=== PATIENT | male | born 1960 | race Caucasian/White ===

== ENCOUNTER 2017-04-14 14:35 | Inpatient (IN) ==
[~2017-04-14 14:35] MED LIST: NOZIN NASAL SWAB NAS ONE
--- OUTSIDE RECORDS SUMMARY | 2017-04-14 16:01 | External Medical Summary ---
:1960 Author Name GENERATED, SYSTEM Care Team Providers Name Role Phone MD BAR, KIRIT Primary Care Provider [phone] Reason For Visit Chief Complaint PRESSURE ULCER ANKLE Social History Functional Status Vital Signs Results Problems Encounter Diagnosis No relevant problems exist. Encounters Encounter Diagnosis No relevant problems exist. Plan of Care Procedures Completed , on 05/01/2013 12:00 AM Immunizations No immunizations administered or ordered. Hospital Course Hospital Discharge Instructions Allergies, Adverse Reactions, Alerts Latex Allergy has not been assessed.IV Contrast Allergy has not been assessed. Medication Medication reconciliation has not been performed.
--- OUTSIDE RECORDS SUMMARY | 2017-04-14 16:01 | External Medical Summary ---
:1960 Author Name GENERATED, SYSTEM Care Team Providers Name Role Phone MD BAR, KIRIT Primary Care Provider [phone] Reason For Visit Chief Complaint PRESSURE ULCER ANKLE Social History Functional Status Vital Signs Results Microbiology from 02/18/2016 1:54 PMCULTURE ANAEROBIC Specimen Number: [id number] Sample Collection Date/Time: 02/18/2016 1:54 PM Specimen Source: Arm Right Forearm CULTURE WOUND: Staphylococcus aureus Heavy growth Methicillin Resistant Staphylococcus aureus isolated. Use Infection Control Precautions. *GRAM STAIN: Many RBC's Few WBC's Few Gram positive cocci in clusters CULTURE ANAEROBIC: No anaerobes isolated *ISOLATE1: Staphylococcus aureus 1 Comment Result Value Staphylococcus aureus Result Status Final Result Ciprofloxacin >=8 R Clindamycin =0.25 S Daptomycin =1 S Doxycycline <=0.5 S Gentamicin <=0.5 S Levofloxacin =4 R Linezolid =2 S Oxacillin >=4 R Rifampin <=0.5 S Tetracycline <=1 S Tigecycline <=0.12 S Trimethoprim/Sulfa <=10 S Vancomycin =1 S CULTURE WOUND Specimen Number: [id number] Sample Collection Date/Time: 02/18/2016 1:54 PM Specimen Source: Arm Right Forearm CULTURE ANAEROBIC: No anaerobes isolated *GRAM STAIN: Many RBC's Few WBC's Few Gram positive cocci in clusters CULTURE WOUND: Staphylococcus aureus Heavy growth Methicillin Resistant Staphylococcus aureus isolated. Use Infection Control Precautions. *ISOLATE1: Staphylococcus aureus 1 Comment Result Value Staphylococcus aureus Result Status Final Result Ciprofloxacin >=8 R Clindamycin =0.25 S Daptomycin =1 S Doxycycline <=0.5 S Gentamicin <=0.5 S Levofloxacin =4 R Linezolid =2 S Oxacillin >=4 R Rifampin <=0.5 S Tetracycline <=1 S Tigecycline <=0.12 S Trimethoprim/Sulfa <=10 S Vancomycin =1 S *GRAM STAIN Specimen Number: [id number] Sample Collection Date/Time: 02/18/2016 1:54 PM Specimen Source: Arm Right Forearm CULTURE ANAEROBIC: No anaerobes isolated CULTURE WOUND: Staphylococcus aureus Heavy growth Methicillin Resistant Staphylococcus aureus isolated. Use Infection Control Precautions. *GRAM STAIN: Many RBC's Few WBC's Few Gram positive cocci in clusters *ISOLATE1: Staphylococcus aureus 1 Comment Result Value Staphylococcus aureus Result Status Final Result Ciprofloxacin >=8 R Clindamycin =0.25 S Daptomycin =1 S Doxycycline <=0.5 S Gentamicin <=0.5 S Levofloxacin =4 R Linezolid =2 S Oxacillin >=4 R Rifampin <=0.5 S Tetracycline <=1 S Tigecycline <=0.12 S Trimethoprim/Sulfa <=10 S Vancomycin =1 S Problems Encounter Diagnosis No relevant problems exist. [...]
--- OUTSIDE RECORDS SUMMARY | 2017-04-14 16:01 | External Medical Summary ---
:1960 Author Name GENERATED, SYSTEM Care Team Providers Name Role Phone MD ABR, KIRIT Primary Care Provider [phone] Reason For Visit Chief Complaint PRESSURE ULCER ANKLE Social History Functional Status Vital Signs Results Problems Encounter Diagnosis No relevant problems exist. Encounters Encounter Diagnosis No relevant problems exist. Plan of Care Procedures Completed Procedure Code: [id number] Procedure Name: not valued, on 02/18/2016 12: 00 AMCompleted , on 05/01/2013 12:00 AM Immunizations No immunizations administered or ordered. Hospital Course Hospital Discharge Instructions Allergies, Adverse Reactions, Alerts Latex Allergy has not been assessed.IV Contrast Allergy has not been assessed. Medication Medication reconciliation has not been performed.
--- OUTSIDE RECORDS SUMMARY | 2017-04-14 16:01 | External Medical Summary ---
:1960 Author Name GENERATED, SYSTEM Care Team Providers Name Role Phone MD BAR, KIRIT Primary Care Provider [phone] Reason For Visit Chief Complaint PRESSURE ULCER [...]
--- OUTSIDE RECORDS SUMMARY | 2017-04-14 16:01 | External Medical Summary ---
:1960 Author Name GENERATED, SYSTEM Care Team Providers Name Role Phone MD BAR, KIRIT Primary Care Provider [phone] Reason For Visit Chief Complaint PRESSURE ULCER ANKLE Social History Functional Status Vital Signs Results Problems Encounter Diagnosis No relevant problems exist. Encounters Encounter Diagnosis No relevant problems exist. Plan of Care Procedures Completed Procedure Code: [id number] Procedure Name: not valued, on 02/18/2016 12: 00 AMCompleted , on 05/01/2013 12:00 AM Immunizations No immunizations administered or ordered. Hospital Course Hospital Discharge Instructions Allergies, Adverse Reactions, Alerts Latex Allergy has not been assessed.IV Contrast Allergy has not been assessed. Medication Medication reconciliation has not been performed.
--- OUTSIDE RECORDS SUMMARY | 2017-04-14 16:02 | External Medical Summary | Continuity of Care Document ---
:1960 Author Organization [facility] Care Team Providers Name Role Phone FRANCESCO HARDING MD Unavailable Unavailable Insurance Providers Payer Name Policy Number Subscriber Name Relationship Medicare A And B [id number] Kod[employer] Stuart 18 Self / Same As Patient [facility] [id number] [employer] Stuart 18 Self / Same As Patient Advance Directives Directive Response Recorded Date/Time Advanced Directives Yes 09/14/15 2:21pm Type Durable Power of Punch Machine Operator 09/14/15 2:21pm Chief Complaint and Reason for Visit Chief Complaint Injury Reason for Visit [id number] Problems Active Problems Medical Problem Onset Date Status Abrasion of ankle, right Unknown Acute Cellulitis 09/23/2012 Acute Cellulitis and abscess of ankle 01/27/2013 Acute Cellulitis and abscess of leg 12/15/2011 Chronic Cellulitis of right foot Unknown Acute Falls 05/23/2013 Acute Injury of toe 01/10/2012 Acute Medication monitoring encounter Unknown Acute Pain in lower limb 01/29/2013 Acute Ulcer of right foot Unknown Acute Medications Current Home Medications Medication Dose Units Route Directions Days/Qty Instructions Start Date Metformin Hcl 1,000 Mg ORAL Twice A Day 12/21/11 1,000 Mg Furosemide 40 Mg 40 Mg ORAL Daily 10/03/12 Nebivolol Hcl 5 5 Mg ORAL Daily 01/29/13 Mg Citalopram 40 Mg ORAL Daily 01/29/13 Hydrobromide (Celexa) 20 Mg Potassium 10 Meq ORAL Twice A Day 01/29/13 Chloride 10 Meq Acetaminophen 650 Mg ORAL Every 4 Hours as 01/29/13 (Tylenol) 325 Mg needed for Pain Divalproex Sodium 500 Mg ORAL Three Times A 06/10/15 (Divalproex Day Sodium Er) 500 Mg Lisinopril/Hydroc 1 Tab ORAL Daily 06/10/15 hlorothiazide 1 Each Aspirin 81 Mg 81 Mg ORAL Daily 06/10/15 Lovastatin 40 Mg 40 Mg ORAL Bedtime 06/10/15 Multivitamin 1 1 Tab ORAL Daily@1200 06/10/15 Each Ascorbic Acid 500 500 Mg ORAL Twice A Day For wound 06/10/15 Mg healing, stop when wound is kayy. Famotidine 20 Mg 20 Mg ORAL Bedtime 06/10/15 Arginine/Glutamin 1 Pkt ORAL Twice A Day 06/10/15 e/Calcium Hmb 1 Each Fluticasone 2 [place] Nasal Daily as needed 06/14/15 Propionate 16 Gm for Seasonal Allergies Doxycycline 100 Mg ORAL Twice A Day 06/15/15 Hyclate 100 Mg Hydrocodone/Aceta 1 Tab ORAL Every 8 Hrs On 06/15/15 minophen 1 Each Schedule Polyethylene 17 Gm ORAL Daily 06/15/15 Glycol 3350 17 Gm Docusate Sodium 100 Mg ORAL Twice A Day as 06/15/15 100 Mg needed for Constipation Magnesium 2,400 Mg ORAL Twice A Day as 06/15/15 Hydroxide 2,400 needed for Mg/10 Ml Constipation Past Home Medications Medication Directions Ordered Status Divalproex Sodium 500 Mg Tab, 500 Three Times A Day 11/01/11 Discontinued Mg Oral Omeprazole 5 Gm Powder, 5 Gm 11/01/11 Discontinued Miscell Omeprazole 20 Mg Capsule.dr, 20 Mg Daily 11/01/11 Discontinued Oral Furosemide 20 Mg Tablet, 20 Mg Daily 11/01/11 Discontinued Oral Multivitamin 1 Each Tablet, 1 Each Daily 11/01/11 Discontinued Oral Acetaminophen 500 Mg Tablet, 500 As Needed 11/01/11 Discontinued Mg Oral Cholestyramine/Aspartame 4 Gm Twice A Day 12/21/11 Discontinued Packet, 4 Gm Oral Fluticasone Propionate 16 Gm Daily 12/21/11 Discontinued [place], 2 Sprays Nasal Glyburide 5 Mg Tablet, 5 Mg Oral Twice A Day 12/21/11 Discontinued Lisinopril 20 Mg Tablet, 20 Mg Daily 12/21/11 Discontinued Oral Minocycline Hcl 100 Mg Capsule, Twice A Day 12/21/11 Discontinued 100 Mg Oral Fluticasone Propionate 16 Gm Daily 12/21/11 Discontinued [place], 1-2 Sprays Nasal Ertapenem Sodium 1 Gm Vial.port, Daily 01/10/12 Discontinued 1000 Mg Intamuscular Linezolid 600 Mg/300 Ml Soln, 600 Twice A Day 10/03/12 Discontinued Mg Intravenous Insulin Lispro (Insulin Humalog) Three Times Daily With Meals 10/03/12 Discontinued 100 Unit/1 Ml Vial, 5 Unit Sub-Q Insulin Glargine,Hum.rec.anlog 100 Bedtime 10/03/12 Discontinued Unit/1 Ml Vial, 10 Unit Sub-Q Azithromycin 250 Mg Tablet, 250 Mg Daily 01/27/13 Discontinued Oral Eucalyptus Oil/Menthol/Camphor 85 Bedtime 01/29/13 Discontinued Gm Cream..g., 85 Gm Topical Nystatin 1 Each Powder.ea., Each As Needed 01/29/13 Discontinued Miscell Calcium Carbonate 500 Mg Tablet, Twice A Day 01/29/13 Discontinued 500 Mg Oral Zolpidem Tartrate 5 Mg Tablet, 5 Bedtime 01/29/13 Discontinued Mg Oral Hydrocodone Bit/Acetaminophen 1 Bedtime 01/29/13 Discontinued Tab Tab, 1 Tab Oral Hydrocodone Bit/Acetaminophen 1 Three Times A Day 01/29/13 Discontinued Tab Tab, 1 Tab Oral Social History Social History Problem Response Recorded Date/Time Onset Date Status Exposure to occupational hazards No 06/10/2015 2:15pm Query Response Start Date Stop Date Smoking Status Never smoker Hospital Discharge Instructions No hospital discharge instructions. Plan of Care Discharge Date 09/14/15 3:15pm Disposition 01 HOME OR SELF-CARE Condition at Discharge Stable Instructions/Education Provided Abrasion (ED) Prescriptions See Medication Section Referrals FRANCESCO HARDING MD - Additional Instructions/Education You have suffered a small abrasion of your right ankle, possible where you already had a pressure ulcer over the lateral malleolus. It did have some bleeding initially, but it stopped and does not need sutures. You may have the nurses resume daily dressings and Unna boot application as they have been doing. Follow up with your doctor as needed or previously scheduled. Notify your doctor if you have any further bleeding that verduzco snot respond to direct pressure. Some of your test results may not be complete prior to your leaving the Emergency Department. The Emergency Department is not authorized to give test results over the phone. Please contact the doctor's office listed in this packet of information for your final results. Follow up with your primary care physician or return to the Emergency Department for worsening or worrisome symptoms. * Emergency Department phone number: [phone], x [phone]* MEDICAL RECORD If you need copies of your X-rays, call [phone]. If you need copies of your medical record, including lab results, a signed authorization for release of records will be required. A telephone call for release of Health Information is not allowed. BILLING Billing can sometimes be confusing and frustrating. To help avoid confusion in the future, please take a moment to acquaint yourself with the billing parties for services. SERVICE BILLING [employer]UTION [employer] Emergency Room Services [facility] Physician Services [facility] X-rays [facility] Patients will receive bills for services from the appropriate provider. If you have any questions about your [facility] bill, our staff will be happy to assist you. Please call [phone], and ask for the billing department. THANK YOU for choosing [facility] as your emergency care provider! Care Plan and Goals ~~Discharge Care Plan~~ Problem: Wound care and treatment Goal: Wound will be clean and dry, without redness, swelling or drainage. Instructions: Take medication(s) as prescribed. Keep wound clean and dry. Apply antibiotic ointment as directed. Follow up with primary care physician as directed. Keep wound covered if working in an unclean environment. Functional Status No functional status results. Allergies, Adverse Reactions, Alerts Allergen Type Severity Reaction Status Last Updated Penicillin Allergy Unknown Active 11/02/11 Clindamycin Allergy Intermediate Hives Active 06/11/15 Ciprofloxacin Allergy Unknown Active 11/02/11 cefazolin Allergy Unknown Active 11/02/11 vancomycin Allergy Severe Confusion Active 06/11/15 levofloxacin Allergy Unknown Active 11/02/11 Immunizations Name Given Type Status Date Pneumonia Vaccine Received if Current 06/12/15 Historical Historical Date Influenza Vaccine Received if Current 03/07/16 Historical Historical Vital Signs Acute Vital Signs Vital Response Date/Time Temperature (Fahrenheit) 98.1 09/14/2015 4:32pm Pulse 68 bpm 09/14/2015 4:32pm Respirations 16 09/14/2015 4:32pm Height 5 ft 4 in Weight 264 lb Body Mass Index 45.0 kg/m^2 Results No known relevant diagnostic tests, laboratory data and/or discharge summary. Procedures No known history of procedures. Encounters Encounter Location Arrival/Admit Date Discharge/Depart Date Attending Provider Departed Renate 09/14/15 2:21pm 09/14/15 3:15pm [facility] MICHELLE Colby DO Recent Diagnosis
--- OUTSIDE RECORDS SUMMARY | 2017-04-14 16:02 | External Medical Summary ---
:1960 Author Name GENERATED, SYSTEM Care Team Providers Name Role Phone MD BAR, KIRIT Primary Care Provider [phone] Reason For Visit Chief Complaint PRESSURE ULCER [...]
--- OUTSIDE RECORDS SUMMARY | 2017-04-14 16:04 | External Medical Summary ---
:1960 Author Name GENERATED, SYSTEM Care Team Providers Name Role Phone MD BAR, KIRIT Primary Care Provider [phone] Reason For Visit Chief Complaint PRESSURE ULCER [...]
--- OUTSIDE RECORDS SUMMARY | 2017-04-14 16:04 | External Medical Summary ---
:1960 Author Name GENERATED, SYSTEM Care Team Providers Name Role Phone MD BAR, KIRIT Primary Care Provider [phone] Reason For Visit Chief Complaint PRESSURE ULCER [...]
--- OUTSIDE RECORDS SUMMARY | 2017-04-14 16:06 | External Medical Summary | Continuity of Care Document ---
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 06/10/15 2:15pm Chief Complaint and Reason for Visit Chief Complaint DX:LOWER EXTREMITY EDEMA Reason for Visit Medication monitoring encounter Pain in lower limb Ulcer of right foot Problems Active Problems Medical Problem Onset Date Status Cellulitis 09/23/2012 Acute Cellulitis and abscess of [...] 06/10/15 e/Calcium Hmb 1 Each Fluticasone 2 [place] Nasal Daily as needed 06/14/15 Propionate 16 [...] Fluticasone Propionate 16 Gm Daily 12/21/11 Discontinued [place], 2 Sprays Nasal Glyburide 5 Mg Tablet, 5 Mg Oral Twice A Day 12/21/11 Discontinued Lisinopril 20 Mg Tablet, 20 Mg Daily 12/21/11 Discontinued Oral Minocycline Hcl 100 Mg Capsule, Twice A Day 12/21/11 Discontinued 100 Mg Oral Fluticasone Propionate 16 Gm Daily 12/21/11 Discontinued [place], 1-2 Sprays Nasal Ertapenem Sodium 1 Gm [...] Smoking Status Never smoker Hospital Discharge Instructions Patient's Instructions Instructions Instructions * During this hospitalization you were evaluated and treated for infected wounds on your right foot. You have ulcers on your right heel and the top of your right foot. The ulcer on top grew MRSA, an bacteria that can cause wound infections and cellulitis. Wound care instructions have been noted below. You will complete antibiotic therapy with a prolonged course of doxycycline. * Because of MRSA, the usp will keep your room in isolation. This means staff will need to wear protective gowns and gloves at all times while in your room. * Because of an interaction with calcium and doxycycline, your calcium supplement has been stopped at discharge. This can be resumed after completing your course of antibiotics. Your multiple vitamin should be taken at noon instead of in the morning. * Because you take narcotic medication on a regular basis, it is recommended you also take medication to prevent constipation. Prescriptions have been provided. * Thank you for the opportunity to participate in your care. Please call with any questions or concerns: [phone]. WOUND CARE INSTRUCTIONS * Change dressing three times weekly and as needed. * Cleans wound with hypochlorous solution (Vashe 0.033% or similar.) * Apply foam dressing to open wounds. * Wrap with kerlex gauze. * Do not allow heel to rest on bed. * Do not apply ankle/leg brace at this time. Activity Instructions Up to chair at least once daily. Be sure to keep right leg elevated. Keep right heel off of bed at all times. Encourage turning in bed at least every two hours to avoid pressure ulcers. Doctor's Appointment * Follow-up with Dr. Pardo in 3-5 days. * To monitor your response to antibiotic therapy, you will have repeat labs 05/30 and 06/29. Results will be sent to Dr. Pardo. Discharge Diet: Carbohydrate controlled Orders DISCHARGE: Discharge to:: SNF Xfer Skilled Nurse Facill Plan of Care Discharge Date 06/15/15 5:45pm Disposition 03 XFER SNF Instructions/Education Provided Doxycycline (By mouth) Methicillin Resistant Staphylococcus Aureus (DC) Prescriptions See Medication Section Follow-up Orders CBC WITH AUTOMATED DIFF* COMPREHENSIVE METABOLIC PANEL* ESR ERYTHROCYTE SED RATE CRP C REACTIVE PROTEIN* CBC WITH AUTOMATED DIFF* COMPREHENSIVE METABOLIC PANEL* ESR ERYTHROCYTE SED RATE CRP C REACTIVE PROTEIN* Referrals FRANCESCO PARDO MD ([facility]) - Within 3 Days Address: [address] [place] [id number] Care Plan and Goals See Discharge Instructions Section Functional Status Query Response Date Recorded Activity Bedrest June 15, 2015 12:32pm Assistance Required Assistance of two June 15, 2015 12:32pm Level of Conscious Alert June 15, 2015 9:05am Oriented x4 Movement Moves extremities June 15, 2015 9:05am Weakness Allergies, Adverse Reactions, Alerts Allergen Type Severity Reaction Status Last Updated Penicillin Allergy Unknown Active 11/02/11 Clindamycin Allergy Intermediate Hives Active 06/11/15 Ciprofloxacin Allergy Unknown Active 11/02/11 cefazolin Allergy Unknown Active 11/02/11 vancomycin Allergy Severe Confusion Active 06/11/15 levofloxacin Allergy Unknown Active 11/02/11 Immunizations Name Given Type Status Date Pneumonia Vaccine Received if Current 06/12/15 Historical Historical Pneumococcal conjugate PCV 13 06/12/15 Administered Completed Vital Signs Acute Vital Signs Vital Response Date/Time Temperature (Fahrenheit) 97.1 06/15/2015 3:35pm Pulse 71 bpm 06/15/2015 3:35pm Respirations 18 06/15/2015 3:35pm Height 5 ft 8 in Weight 332 lb Body Mass Index 50.5 kg/m^2 Results Laboratory Results Test Name Result Units Flags Reference Collection Result Comments Date/Time Date/Time Sodium Level 133 mmol/L # L 135-150 06/10/2015 06/10/2015 5:30am 7:57am Potassium Level 4.1 mmol/L 3.5-5.1 06/10/2015 06/10/2015 5:30am 7:57am Chloride Level 91 mmol/L L 98-108 06/10/2015 06/10/2015 5:30am 7:57am Carbon Dioxide 33 mmol/L H 22-29 06/10/2015 06/10/2015 Level 5:30am 7:57am Anion Gap 12.7 MEQ/L 3-15 06/10/2015 06/10/2015 5:30am 7:57am Blood Urea 23 mg/dL H 7-18 06/10/2015 06/10/2015 Nitrogen 5:30am 7:57am Creatinine 0.75 mg/dL L 0.8-1.5 06/10/2015 06/10/2015 5:30am 7:57am BUN/Creatinine 31 H 10-20 06/10/2015 06/10/2015 Ratio 5:30am 7:57am Estimat 131.8 06/10/2015 06/10/2015 Glomerular 5:30am 7:57am Filtration Rate Estimated GFR 108.9 06/10/2015 06/10/2015 (Non- 5:30am 7:57am Algerian Glucose Level 208 mg/dL # H 70-110 06/10/2015 06/10/2015 5:30am 7:57am Calcium Level 8.9 mg/dL 8.8-10.8 06/10/2015 06/10/2015 5:30am 7:57am Hemoglobin A1c 7.6 % H 4.0-6.0 06/10/2015 06/10/2015 5:30am 7:57am Pending Laboratory Results Test Name Collection Date/Time Pending Microbiology Results Procedure Source Collection Date/Time Procedures Procedure Status Date Provider(s) METABOLIC PANEL TOTAL CA Completed 06/10/15 GLYCOSYLATED HEMOGLOBIN TEST Completed 06/10/15 Encounters Encounter Location Arrival/Admit Date Discharge/Depart Date Attending Provider Discharged Renate 06/10/15 1:47pm 06/15/15 5:45pm HERNANDEZ CHOUDHURY [facility] Registered Renate 06/10/15 3:55am RFANCESCO PARDO [facility] Recent Diagnosis Medication monitoring encounter Pain in lower limb Ulcer of right foot
--- OUTSIDE RECORDS SUMMARY | 2017-04-14 16:06 | External Medical Summary ---
:1960 Author Name GENERATED, SYSTEM Care Team Providers Name Role Phone MD BAR, KIRIT Primary Care Provider [phone] Reason For Visit Chief Complaint PRESSURE ULCER ANKLE Social History Functional Status Vital Signs Results Problems Encounter Diagnosis No relevant problems exist. Encounters Encounter Diagnosis No relevant problems exist. Plan of Care Procedures Completed Procedure Code: [id number] Procedure Name: not valued, on 02/18/2016 12: 00 AMCompleted , on 05/01/2013 12:00 AM Immunizations No immunizations administered or ordered. Hospital Course Hospital Discharge Instructions Allergies, Adverse Reactions, Alerts Latex Allergy has not been assessed.IV Contrast Allergy has not been assessed. Medication Medication reconciliation has not been performed.
--- OUTSIDE RECORDS SUMMARY | 2017-04-14 16:07 | External Medical Summary ---
:1960 Author Name GENERATED, SYSTEM Care Team Providers Name Role Phone MD BAR, KIRIT Primary Care Provider [phone] Reason For Visit Chief Complaint PRESSURE ULCER [...]
--- OUTSIDE RECORDS SUMMARY | 2017-04-14 16:07 | External Medical Summary | Continuity of Care Document ---
:1960 Author Organization [facility] Allergies Active Description Code Type Severity Reaction Onset Reported/ Identified Relationship Clinical to Patient Status Yes cefazolin F0060 Drug Unknown N/A 11/02/2011 26079 Aller gy Yes ciprofloxaci F0060 Drug Unknown N/A 11/02/2011 n 99484 Aller gy Yes ciprofloxaci F0000 Drug Unknown N/A 11/02/2011 n HCl 94929 Aller gy Yes clindamycin F0060 Drug Unknown N/A 11/02/2011 00758 Aller gy Yes levofloxacin F0060 Drug Unknown N/A 11/02/2011 75221 Aller gy Yes Penicillins F0010 Drug Unknown N/A 11/02/2011 09696 Aller gy Yes vancomycin F0060 Drug Unknown N/A 11/02/2011 21996 Aller gy Yes vancomycin F0060 Drug Severe Confusion 06/11/2015 55009 Aller gy Yes clindamycin F0060 Drug Moderate Hives 06/11/2015 16938 Aller gy Medications Problems Date Dx Attending Type Code Diagnosis Diagnosed By Coded 11/02/2011 Ot V67.59 12/18/2011 Ot 041.05 12/18/2011 Ot 250.00 12/18/2011 Ot 343.9 12/18/2011 Ot 345.80 12/18/2011 Ot 401.9 12/18/2011 Ot 682.6 12/18/2011 Ot 728.87 12/18/2011 Ot V14.0 12/21/2011 Ot 041.05 12/21/2011 Ot 250.00 12/21/2011 Ot 343.9 12/21/2011 Ot 401.9 12/21/2011 Ot 682.6 12/21/2011 Ot 715.90 12/21/2011 Ot 787.91 12/21/2011 Ot V14.0 01/10/2012 Ot 893.0 01/10/2012 Ot E888.9 10/03/2012 Ot 250.02 10/03/2012 Ot 343.2 10/03/2012 Ot 345.90 10/03/2012 Ot 682.6 10/03/2012 Ot 682.7 10/03/2012 Ot 707.15 10/03/2012 Ot 715.90 10/03/2012 Ot 785.0 10/03/2012 Ot V15.81 10/03/2012 Ot V58.67 10/11/2012 Moshe RECIO, F 110.4 DERMATOPHYTOSIS OF Mima K FOOT 10/11/2012 Moshe RECIO, F 250.80 DIAB W OTH SPEC Mima K MANIFEST, TYPE II OR UNSPEC TYPE, 10/11/2012 Moshe RECIO, F 272.4 HYPERLIPIDEMIA Mima K NEC/NOS 10/11/2012 Moshe RECIO, 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 10/11/2012 Moshe RECIO, 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 10/11/2012 Moshe RECIO, F 345.90 EPILEPSY UNSPEC W/O Mima K MENTION INTRACTABLE EPILEPSY 10/11/2012 Moshe RECIO, F 401.9 HYPERTENSION NOS Mima K 10/11/2012 Moshe RECIO, F 530.81 ESOPHAGEAL REFLUX Mima K 10/11/2012 Moshe RECIO, F 682.6 CELLULITIS OF LEG Mima K 10/11/2012 Moshe RECIO, F 690.10 SEBORRHEIC Mima K DERMATITIS,NOS 01/27/2013 INA DO, Ot 250.80 MICHELLE M 01/27/2013 INA DO, Ot 343.9 MICHELLE M 01/27/2013 INA DO, Ot 682.7 MICHELLE M 01/27/2013 BUCKLEY DO, Ot 707.15 MICHELLE M 01/27/2013 BUCKLEY DO, Ot 782.1 MICHELLE M 02/01/2013 ZBIGNIEW RECIO, Ot 250.00 ALEX P 02/01/2013 ZBIGNIEW RECIO, Ot 311 ALEX P 02/01/2013 ZBIGNIEW RECIO, Ot 345.90 ALEX P 02/01/2013 ZBIGNIEW RECIO, Ot 401.9 ALEX P 02/01/2013 ZBIGNIEW RECIO, Ot 459.81 ALEX P 02/01/2013 ZBIGNIEW RECIO, Ot 477.0 ALEX P 02/01/2013 ZBIGNIEW RCEIO, Ot 530.81 ALEX P 02/01/2013 ZBIGNIEW RECIO, Ot 682.6 ALEX P 02/01/2013 ZBIGNIEW RECIO, Ot 707.06 ALEX P 02/01/2013 ZBIGNIEW RECIO, Ot 707.09 ALEX P 02/01/2013 ZBIGNIEW RECIO, Ot 707.22 ALEX P 02/01/2013 ZBIGNIEW RECIO, Ot 709.8 ALEX P 02/01/2013 ZBIGNIEW RECIO, Ot 780.52 ALEX P 05/23/2013 SANTOS RECIO, Ot 920 VERONIQUE E 05/23/2013 SANTOS RECIO, Ot 959.01 VERONIQUE E 05/23/2013 SANTOS RECIO, Ot E849.7 VERONIQUE E 05/23/2013 SANTOS RECIO, Ot E888.9 VERONIQUE E 08/26/2013 BAR RECIO, Ot 343.9 KIRIT T 08/26/2013 BAR RECIO, Ot 780.79 KIRIT T 08/26/2013 BAR ERCIO, Ot V57.1 KIRIT T 06/17/2014 MEAGHAN RECIO, FRANCESCO M Ot 250.00 06/17/2014 MEAGHAN RECIO, FRANCESCO M Ot 401.9 06/17/2014 MEAGHAN RECIO, FRANCESCO M Ot 250.00 06/17/2014 MEAGHAN RECIO, FRANCESCO M Ot 401.9 06/26/2014 MEAGHAN RECIO, FRANCESCO M Ot 250.00 06/26/2014 MEAGHAN RECIO, FRANCESCO M Ot 401.9 08/20/2014 Ot 401.1 09/10/2014 MEAGHAN RECIO, FRANCESCO M Ot V58.69 09/18/2014 MEAGHAN RECIO, FRANCESCO M Ot 250.00 09/18/2014 MEAGHAN RECIO, FRANCESCO M Ot 401.1 09/29/2014 Ot 787.91 09/29/2014 Ot 250.00 09/29/2014 Ot 682.6 09/29/2014 BAR RECIO, Ot 401.9 KIRIT T 09/29/2014 Ot V64.2 09/29/2014 BAR RECIO, Ot V58.69 KIRIT T 09/29/2014 SANTOS RECIO, Ot 780.79 VERONIQUE E 09/29/2014 SANTOS RECIO, Ot 784.59 VERONIQUE E 09/29/2014 SANTOS RECIO, Ot V15.59 VERONIQUE E 09/29/2014 BAR RECIO, Ot 250.00 KIRIT T 09/29/2014 BAR RECIO, Ot 272.0 KIRIT T 09/29/2014 BAR RECIO, Ot 285.9 KIRIT T 09/29/2014 BAR RECIO, Ot 401.9 KIRIT T 09/29/2014 BAR RECIO, Ot 682.7 KIRIT T 09/29/2014 BAR RECIO, Ot 250.00 KIRIT T 09/29/2014 BAR RECIO, Ot 401.9 KIRIT T 09/29/2014 BAR RECIO, Ot 682.7 KIRIT T 09/29/2014 MEAGHAN RECIO, FRANCESCO M Ot V58.69 09/29/2014 MEAGHAN RECIO, FRANCESCO M Ot 799.9 09/29/2014 MEAGHAN RECIO, FRANCESCO M Ot 250.00 09/29/2014 MEAGHAN RECIO, FRANCESCO M Ot 401.9 09/29/2014 Ot 401.1 09/29/2014 MEAGHAN RECIO, FRANCESCO M Ot 250.00 09/29/2014 MEAGHAN RECIO, FRANCESCO M Ot 401.1 10/14/2014 MEAGHAN RECIO, FRANCESCO M Ot 250.00 10/14/2014 MEAGHAN RECIO, FRANCESCO M Ot 401.1 10/14/2014 MEAGHAN RECIO, FRANCESCO M Ot 250.00 10/14/2014 MEAGHAN RECIO, FRANCESCO M Ot 401.1 10/25/2014 MEAGHAN RECIO, FRANCESCO M Ot 250.00 10/25/2014 MEAGHAN RECIO, FRANCESCO M Ot 682.9 11/26/2014 Ot 787.91 11/26/2014 Ot 250.00 11/26/2014 Ot 682.6 11/26/2014 BAR RECIO, Ot 401.9 KIRIT T 11/26/2014 Ot V64.2 11/26/2014 BAR RECIO, Ot V58.69 KIRIT T 11/26/2014 SANTOS RECIO, Ot 780.79 VERONIQUE E 11/26/2014 SANTOS RECIO, Ot 784.59 VERONIQUE E 11/26/2014 SANTOS RECIO, Ot V15.59 VERONIQUE E 11/26/2014 BAR RECIO, Ot 250.00 KIRIT T 11/26/2014 BAR RECIO, Ot 272.0 KIRIT T 11/26/2014 BAR RECIO, Ot 285.9 KIRIT T 11/26/2014 BAR RECIO, Ot 401.9 KIRIT T 11/26/2014 BAR RECIO, Ot 682.7 KIRIT T 11/26/2014 BAR RECIO, Ot 250.00 KIRIT T 11/26/2014 BAR RECIO, Ot 401.9 KIRIT T 11/26/2014 BAR RECIO, Ot 682.7 KIRIT T 11/26/2014 MEAGHAN RECIO, FRANCESCO M Ot V58.69 11/26/2014 MEAGHAN RECIO, FRANCESCO M Ot 799.9 11/26/2014 MEAGHAN RECIO, FRANCESCO M Ot 250.00 11/26/2014 MEAGHAN RECIO, FRANCESCO M Ot 401.9 11/26/2014 Ot 401.1 11/26/2014 MEAGHAN RECIO, FRANCESCO M Ot 250.00 11/26/2014 MEAGHAN RECIO, FRANCESCO M Ot 401.1 11/26/2014 MEAGHAN RECIO, FRANCESCO M Ot 250.00 11/26/2014 MEAGHAN RECIO, FRANCESCO M Ot 682.9 12/02/2014 MEAGHAN RECIO, FRANCESCO M Ot 250.00 12/02/2014 MEAGHAN RECIO, FRANCESCO M Ot 401.1 12/05/2014 MEAGHAN RECIO, FRANCESCO M Ot 250.00 12/05/2014 MEAGHAN RECIO, FRANCESCO M Ot 401.1 12/05/2014 MEAGHAN RECIO, FRANCESCO M Ot 250.00 12/05/2014 MEAGHAN RECIO, FRANCESCO M Ot 401.1 12/19/2014 MEAGHAN RECIO, FRANCESCO M Ot 250.00 12/19/2014 MEAGHAN RECIO, FRANCESCO M Ot 401.1 12/30/2014 MEAGHAN RECIO, FRANCESCO M Ot 250.00 12/30/2014 MEAGHAN RECIO, FRANCESCO M Ot 401.1 03/20/2015 MEAGHAN RECIO, FRANCESCO M Ot E11.9 03/20/2015 MEAGHAN RECIO, FRANCESCO M Ot I10 04/13/2015 MEAGHAN RECIO, FRANCESCO M Ot E11.9 04/13/2015 MEAGHAN RECIO, FRANCESCO M Ot I10 05/21/2015 MEAGHAN RECIO, FRANCESCO M Ot S81.801S 06/11/2015 MEAGHAN RECIO, FRANCESCO M Ot E11.9 06/15/2015 MACEY RECIO, Ot A49.02 HERNANDEZ H 06/15/2015 MACEY RECIO, Ot D64.9 HERNANDEZ H 06/15/2015 MACEY RECIO, Ot D72.829 HERNANDEZ H 06/15/2015 MACEY RECIO, Ot E11.9 HERNANDEZ H 06/15/2015 MACEY RECIO, Ot F32.9 HERNANDEZ H 06/15/2015 MACEY RECIO, Ot G40.909 HERNANDEZ H 06/15/2015 MACEY RECIO, Ot G47.00 HERNANDEZ H 06/15/2015 MACEY RECIO, Ot G80.9 HERNANDEZ H 06/15/2015 MACEY RECIO, Ot G82.50 HERNANDEZ H 06/15/2015 MACEY RECIO, Ot I10 HERNANDEZ H 06/15/2015 MACEY RECIO, Ot K21.9 HERNANDEZ H 06/15/2015 MACEY RECIO, Ot L03.115 HERNANDEZ H 06/15/2015 MACEY RECIO, Ot S91.301A HERNANDEZ H 06/24/2015 MEAGHAN RECIO, FRANCESCO M Ot S81.801S 07/01/2015 MEAGHAN RECIO, FRANCESCO M Ot E11.9 07/01/2015 MEAGHAN RECIO, FRANCESCO M Ot I10 07/09/2015 MEAGHAN RECIO, FRANCESCO M Ot V58.69 07/14/2015 MEAGHAN RECIO, FRANCESCO M Ot E11.9 07/14/2015 MEAGHAN RECIO, FRANCESCO M Ot I10 07/15/2015 MEAGHAN RECIO, FRANCESCO M Ot L08.89 07/15/2015 MEAGHAN RECIO, FRANCESCO M Ot Z22.322 07/16/2015 MEAGHAN RECIO, FRANCESCO M Ot E11.9 07/16/2015 MEAGHAN RECIO, FRANCESCO M Ot I10 07/22/2015 MEAGHAN RECIO, FRANCESCO M Ot L08.89 07/22/2015 MEAGHAN RECIO, FRANCESCO M Ot Z22.322 07/24/2015 MEAGHAN RECIO, FRANCESCO M Ot L08.89 07/24/2015 MEAGHAN RECIO, FRANCESCO M Ot Z22.322 07/24/2015 MEAGHAN RECIO, FRANCESCO M Ot D64.9 07/24/2015 MEAGHAN RECIO, FRANCESCO M Ot I10 07/24/2015 MEAGHAN RECIO, FRANCESCO M Ot L03.119 07/31/2015 MEAGHAN RECIO, FRANCESCO M Ot D64.9 07/31/2015 MEAGHAN RECIO, FRANCESCO M Ot I10 07/31/2015 MEAGHAN RECIO, FRANCESCO M Ot L03.119 08/23/2015 MEAGHAN RECIO, FRANCESCO M Ot D64.9 08/23/2015 MEAGHAN RECIO, FRANCESCO M Ot I10 08/23/2015 MEAGHAN RECIO, FRANCESCO M Ot L03.119 09/07/2015 MEAGHAN RECIO, FRANCESCO Colby Ot E11.9 09/07/2015 MEAGHAN RECIO, FRANCESCO Colby Ot I10 09/14/2015 BUCKLEY DO, Ot R58 HEMORRHAGE, NOT MICHELLE M ELSEWHERE CLASSIFIED 09/14/2015 BUCKLEY DO, Ot S90.511A ABRASION, RIGHT MICHELLE M ANKLE, INITIAL ENCOUNTER 09/14/2015 BUCKLEY DO, Ot W17.89XA OTHER FALL FROM ONE MICHELEL M LEVEL TO ANOTHER, IN 09/14/2015 BUCKLEY DO, Ot Y92.511 RESTAURANT OR CAFE MICHELLE M PLACE 09/14/2015 BUCKLEY DO, Ot Y93.89 ACTIVITY, OTHER MICHELLE M SPECIFIED 09/14/2015 BUCKLEY DO, Ot Z99.3 DEPENDENCE ON MICHELLE M WHEELCHAIR 09/18/2015 BUCKLEY DO, Ot R58 HEMORRHAGE, NOT MICHELLE M ELSEWHERE CLASSIFIED 09/18/2015 BUCKLEY DO, Ot S90.511A ABRASION, RIGHT MICHELLE M ANKLE, INITIAL ENCOUNTER 09/18/2015 BUCKLEY DO, Ot W17.89XA OTHER FALL FROM ONE MICHELLE M LEVEL TO ANOTHER, IN 09/18/2015 BUCKLEY DO, Ot Y92.511 RESTAURANT OR CAFE MICHELLE M PLACE 09/18/2015 BUCKLEY DO, Ot Y93.89 ACTIVITY, OTHER MICHELLE M SPECIFIED 09/18/2015 BUCKLEY DO, Ot Z99.3 DEPENDENCE ON MICHELLE M WHEELCHAIR 02/22/2016 FRANCESCO HARDING MD Ot L08.89 OTH LOCAL INFECTIONS OF THE SKIN AND SUB 02/22/2016 FRANCESCO HARDING MD Ot Z86.14 PERSONAL HISTORY OF METHICILLIN RESIS ST 03/10/2016 FRANCESCO HARDING MD Ot L08.89 OTH LOCAL INFECTIONS OF THE SKIN AND SUB 03/10/2016 FRANCESCO HARDING MD Ot Z86.14 PERSONAL HISTORY OF METHICILLIN RESIS ST 03/28/2016 FRANCESCO HARDING MD Ot L08.89 OTH LOCAL INFECTIONS OF THE SKIN AND SUB 03/28/2016 FRANCESCO HARDING MD Ot Z86.14 PERSONAL HISTORY OF METHICILLIN RESIS ST Procedures Encounters ACCT No. Visit Discharge Status Pt. Type Provider Facility Loc./Unit Complaint Date/Time [id number] 10/11/2012 10/15/2012 DIS Inpatient Moshe Still7TN 951 12:16:00 16:10:[id number]/16/2016 02/16/2016 Renate Alvarenga MD LAB DROP OFF 520 10:34:00 23:59:59 [facility] [id number] 09/14/2015 09/14/2015 DIS Emergency INA Renate ED 554 14:21:00 [id number] 06/29/2015 06/29/2015 Renate Alvarenga MD LAB 027 09:03:00 23:59:[address] [facility] [id number] 06/22/2015 06/22/2015 Renate Alvarenga MD LAB 255 02:51:00 23:59:[address] [facility] [id number] 06/10/2015 06/15/2015 DIS Inpatient MACEY RECIO, Renate MED/ SURG 003 13:47:00 17:45:00 [facility] [id number] 06/10/2015 06/10/2015 Renate Alvarenga MD LAB 444 03:55:00 23:59:[address] [facility] [id number] 04/29/2015 04/29/2015 Renate Alvarenga MD LAB 477 08:34:00 23:59:[address] [facility] [id number] 02/27/2015 02/27/2015 Renate Alvarenga MD LAB 014 06:45:00 23:59:[address] [facility] [id number] 02/26/2015 02/26/2015 Renate Alvarenga MD LAB 471 04:12:00 23:59:[address] [facility] [id number] 11/26/2014 11/26/2014 Renate Alvarenga MD LAB 010 04:19:00 23:59:[address] [facility] [id number] 09/29/2014 09/29/2014 Renate Alvarenga MD LAB 315 04:09:00 23:59:[address] [facility] [id number] 08/27/2014 08/27/2014 Renate Alvarenga MD LAB 784 10:34:00 23:59:[address] [facility] [id number] 06/05/2014 06/05/2014 CLS Outpatien Renate HARDING MD LAB 801 04:45:00 23:59:[address] [facility] [id number] 05/29/2014 05/29/2014 CLS OutpatiRenate Glass MD LAB 348 06:33:00 23:59:[address] [facility] [id number] 04/01/2014 04/01/2014 CLS OutpatiRenate Glass MD LAB 280 06:16:00 23:59:[address] [facility] [id number] 02/26/2014 02/26/2014 CLS Outpatien BAR Renate LAB 430 05:47:00 23:59:59 t [facility] [id number] 02/19/2014 02/19/2014 CLS Outpatien BARVIVIANE [facility] LAB 799 05:31:00 23:59:59 t [facility] [id number] 11/15/2013 11/15/2013 CLS Outpatien BAR Renate LAB 538 06:38:00 23:59:59 t [facility] [id number] 08/26/2013 08/26/2013 DIS Outpatien BAR Renate PT 083 14:00:00 14:30:00 [facility] [id number] 07/11/2013 07/11/2013 CLS Outpatien BAR Renate LAB 678 06:33:00 23:59:59 t [facility] [id number] 05/23/2013 05/23/2013 CLS Outpatien SANTOS [facility] 936 10:16:00 23:59:59 t , [facility] [id number] 05/23/2013 05/23/2013 DIS Emergency SANTOS [facility] ED 902 10:02:00 10:41:00 , [facility] [id number] 04/12/2013 04/12/2013 CLS Outpatien BAR Renate LAB 617 20:05:00 23:59:59 t [facility] [id number] 02/17/2013 02/17/2013 CLS Outpatien [facility] 042 12:39:00 23:59:59 t [facility] [id number] 02/07/2013 02/07/2013 CLS Outpatien BAR [facility] LAB 639 05:45:00 23:59:59 t [facility] [id number] 01/29/2013 02/01/2013 DIS Inpatient BLOUSTINE [facility] MED/ SURG 139 16:20:00 16:35:00 [facility] [id number] 01/27/2013 01/27/2013 DIS Emergency INA [facility] ED 752 15:27:00 17:34:[facility] [id number] 07/30/2014 Document 979 05:37:00 Registrat ion [id number] 09/23/2012 Document 965 18:40:00 Registrat ion [id number] 09/23/2012 Document 973 12:43:00 Registrat ion [id number] 01/16/2012 Document 604 10:12:00 Registrat ion [id number] 01/10/2012 Document 396 15:58:00 Registrat ion [id number] 12/18/2011 Document 141 13:30:00 Registrat ion [id number] 12/15/2011 Document 972 12:14:00 Registrat ion [id number] 11/02/2011 Document 112 05:54:00 Registrat ion [id number] 04/28/2016 05/25/2016 DIS Outpatien BLUE, PRESSURE 01 00:01:00 16:55:20 t SUDHIR ULCER ANKLE [id number] 03/29/2016 04/28/2016 DIS Outpatien BLUE, PRESSURE 93 00:01:00 00:14:44 t SUDHIR ULCER ANKLE [id number] 02/27/2016 03/29/2016 DIS Outpatien BLUE, PRESSURE 85 00:01:00 00:14:41 t SUDHIR ULCER ANKLE [id number] 01/28/2016 02/27/2016 DIS Outpatien BLUE, PRESSURE 77 00:01:00 00:14:43 t SUDHIR ULCER ANKLE [id number] 12/28/2015 01/28/2016 DIS Outpatien BLUE, PRESSURE 69 00:01:00 00:14:52 t SUDHIR ULCER ANKLE [id number] 11/27/2015 12/28/2015 DIS Outpatien BLUE, PRESSURE 51 00:01:00 00:14:25 t SUDHIR ULCER ANKLE [id number] 10/28/2015 11/27/2015 DIS Outpaticherri BLUE, PRESSURE 44 00:01:00 00:14:44 t SUDHIR ULCER ANKLE [id number] 09/27/2015 10/28/2015 DIS June BLUE, PRESSURE 36 00:01:00 00:14:26 t SUDHIR ULCER ANKLE [id number] 08/28/2015 09/27/2015 DIS June BLUE, PRESSURE 28 00:01:00 00:14:39 t SUDHIR ULCER ANKLE [id number] 08/12/2015 08/12/2015 CLS June BLUE, 10 14:35:00 23:59:59 t SUDHIR
[2017-04-14 16:11] VITALS: BMI 47.0
--- NOTE | 2017-04-14 16:23 | Orthopedic Consult Note ---
Orthopedic Consultation HPI - Consultation Info Consult Date: 04/14/17 Attending Physician: Corey Oro MD Consult Reason: fracture - History of Present Illness Goran is a 56 year old male with history of CP, Epilepsy, mild MR, DM and resides at a halfway. Today he fell and sustained an open fracture to the left great toe distal phalanx. Dr. Oro was contacted and agreed to take care of the patients surgically with the hospitalist as the attending physician. Review of Systems - Constitutional Constitutional: Absent: headache(s) - EENT Eyes: Absent: pain Ears, nose, mouth, throat: Present: dental problems. Absent: headaches - Cardiovascular Cardiovascular: Absent: chest pain Vascular: Present: pedal edema - Respiratory Respiratory: Absent: dyspnea - Gastrointestinal Gastrointestinal: Absent: abdominal pain - Genitourinary Genitourinary General: Absent: fever(s), night sweats - Musculoskeletal Musculoskeletal: Present: as per HPI, deformity - Integumentary/Breasts Integumentary: Present: erythema, swelling, wounds (sacral wound, open left great toe fracture) - Psychiatric Psychiatric: Present: as per HPI - Hematologic/Lymphatic Hematologic/Lymphatic: Absent: lymphadenopathy PFSH MR Cerebral Palsy history skin infections and ulcers Major depressive disorder insomnia hyperlipidemia epilepsy essential HTN seasonal allergic rhinitis GERD OA edema "renal impairment" dementia peripheral venous insufficiency - Social History Smoking status: Unknown if ever smoked Housing: halfway Medications Allergies Allergy/AdvReac Type Severity Reaction Status Date / Time Penicillins Allergy Severe Rash Verified 04/14/17 16:11 Orthopedic Exam - Constitutional General Appearance: Present: alert, orientated x3, mild distress - Respiratory Exam Present: non-labored - Cardiovascular Exam Present: peripheral edema, pedal pulses intact (1 plus post tib) Capillary Refill: > 3 Seconds - Abdominal Exam Absent: tenderness - Extremities Exam Present: pulses intact, tenderness, joint swelling Comments: left great toe with a 2 cm laceration roughly 260 degrees around MTP joint. Bone is exposed. Cap refill is 3 sec. post tib pulse is 1 pulse. Strength and ROM are limited secondary to fracture - Integumentary Exam Present: pink Comments: multiple ulcerations on tibias and sacral area. - Lymphatic Lymphatic: Absent: lymphedema - Neurological Exam Present: intact to light touch (but decreased secondary to peripheral neruopathy ) - Psychiatric Exam Present: normal affect - Labs Result Diagrams: 04/14/17 16:48 04/14/17 16:48 Impression and Recommendation (1) Open fracture of phalanx of left great toe Current visit: Yes Qualifiers: Encounter type: initial encounter Phalanx: proximal Status: Acute Dr. Oro is recommending irrigation and debridement tonight at the bedside with further evaluation of the fracture under fluoroscopy tomorrow in the OR. Please note that 1 emergent case was in process in the OR and a C section was pending. No OR or anesthesia staff were immediately available. If the fracture is amenable to pinning, we may do so. If not it may require a primary amputation. This was discussed with the patient and he was agreeable. Potential risk of need for further higher amputation was discussed if he does not heal the surgical wound. Antibiotics were discussed as well. He was given Cephalexin in the [place] [facility] and has done well with it. Other antibiotics listed have caused a rash. He will be NPO after midnight with case planned at 0730 tomorrow AM. Risks and benefits of the recommended procedure were discussed with the patient and/or patient's legal front office representative. They include: infection, nerve damage, artery damage, stroke, DE, PE, DVT, ileus, continued pain, or risk that the injury may not heal despite surgery. There are also medical risks of anesthesia. Risks are not limited to the above mentioned alone. Hospital Course Summary Disclaimer: The visit summary below is not to be considered part of the above Progress Note.
--- NOTE | 2017-04-14 16:44 | History & Physical Report ---
History of Present Illness Date: 04/14/17 Chief complaint: Left great toe fracture HPI: Goran Stuart is a 56 yo with DM2, cerebral palsy, epilepsy, GERD, HTN. He is a prison resident who had a fall today. Patient struggles to give a history. First he said he tripped, then he said he fell out of bed. He has a left great toe fracture with laceration and exposed bone. He denies pain. He denies any other injury associated with fall. He denies n/v. He is [place] [facility] [place] by Dr. Oro. Review of Systems - Constitutional Constitutional: Present: as per HPI - EENMT Eyes: Absent: change in vision - Cardiovascular Cardiovascular: Absent: chest pain, palpitations, syncope, dyspnea on exertion - Respiratory Respiratory: Absent: cough, dyspnea, dyspnea on exertion - Gastrointestinal Gastrointestinal Comments: c/o diarrhea but may mean fecal incontinence. - Genitourinary Genitourinary: Absent: dysuria PFSH DM2 cerebral palsy epilepsy essential HTN depression dyslipidemia wounds to BLE GERD CKD Surgical History: left femur ORIF; herniorraphy; tonsilectomy Family History: Father of lung ca. Brother with CAD at age 32. Mother and sister in good health. - Social History Smoking status: Never smoker Substance use type: does not use Alcohol intake: never Medications Allergies Allergy/AdvReac Type Severity Reaction Status Date / Time Penicillins Allergy Severe Rash Verified 04/14/17 16:11 Exam Vital Signs: Temperature 96.2 F L 04/14/17 16:19 Pulse Rate 68 04/14/17 16:19 Respiratory Rate 18 04/14/17 16:19 Blood Pressure 119/61 04/14/17 16:19 Pulse Oximetry 98 04/14/17 16:19 Height/Weight/BMI: Height 5 ft 8 in Weight 140.5 kg Body Mass Index 47.0 - Constitutional Present: well nourished, well developed - Routine HEENT Exam Eye: Present: EOMI ENT: Present: mucous membranes moist, dentition normal - Routine Neck Exam Present: supple - Routine Chest/Breast/Axilla Exam Chest wall: Absent: tenderness - Routine Respiratory Exam Present: CTA bilaterally. Absent: wheezes - Routine Cardiovascular Exam Present: RRR. Absent: murmur - Routine Abdominal Exam Present: soft, normoactive bowel sounds, non distended. Absent: tenderness - Routine Extremities Exam Present: edema - Routine Skin Exam Present: wounds Comments: wounds to BLE. Dressing to left foot. - Routine Neurological Exam Present: alert, CN II-XII intact Assessment and Plan Assessment and Plan: Medication list citalopram Vitamin C Tylenol Miralax metformin lovastatin KCl lisinopril/hctz lasix bystolic asa Novolin 70/30 Lotrisone MOM Impression Left great toe open fracture DM2 essential HTN cerebral palsy epilepsy - 20 years since last seizure. used to be on depakote BLE wounds BLE edema Plan Will switch to basal-bolus insulin instead of continuing 70/30 tid. Calculations made based on 70 u w/ mills and 66 w/ br and reduced for now. Supplemental insulin available. Restarting bystolic. Monitor. May be able to restart ASA post-op. Holding lisinopril, kcl, metformin. Lab ordered. Dr. Oro consulted and planning to take pt to OR today. Hospital Course Summary Disclaimer: The visit summary below is not to be considered part of the above Progress Note. Hospital Course: 04/14/17 17:26 Will switch to basal-bolus insulin instead of continuing 70/30 tid. Calculations made based on 70 u w/ mills and 66 w/ br and reduced for now. Supplemental insulin available. Restarting bystolic. Monitor. May be able to restart ASA post-op. Holding lisinopril, kcl, metformin. Lab ordered. Dr. Oro consulted and planning to take pt to OR today.
--- NOTE | 2017-04-14 17:05 | XRay Report ---
Indication: Foot wound PROCEDURE: XR foot LT min 3V: Encounter: Initial Comparison: None Findings: There is a pathologic fracture through the great toe proximal phalanx through a large lytic lesion. This fracture appears to extend into the metatarsophalangeal joint. There is possible osteolysis also in the second metatarsal head. Lateral deviation of the toes with bony fusion and ankylosis of the PIP and DIP joints diffusely. Moderate degenerative change in the first metatarsophalangeal joint with severe hallux valgus deformity. Orthopedic hardware in the distal tibia and fibula. Large inferior calcaneal spur. Hammertoe deformities. Impression: Pathologic fracture through the great toe proximal phalanx. Lytic process in this phalanx could be due to osteomyelitis. Possible osteomyelitis involvement also in the second metatarsal head. .
[2017-04-14] MEDS ORDERED: MORPHINE SULFATE 2mg INJECTION IVP ONE (17:20)
[2017-04-14] MEDS: NS FLUSH BAG 500ml IV PRN (18:26)
[2017-04-14] MEDS: CEFAZOLIN 2 G in NS 100 ML IV SCH (18:26)
--- NOTE | 2017-04-14 18:48 | Anesthesia Preoperative Report ---
Anesthesia Preoperative Record - Date and Time Date: 04/14/17 Preoperative Diagnosis: toe injury w partial amputation left toe fx Proposed Procedure: orif left toe NPO Since Date: 04/14/17 NPO Since Time: 23:00 Allergies/Adverse Reactions: Allergies Allergy/AdvReac Type Severity Reaction Status Date / Time Penicillins Allergy Severe Rash Verified 04/14/17 16:11 - Vital Signs Vital Signs: Temperature 96.2 F L 04/14/17 16:19 Pulse Rate 68 04/14/17 16:19 Respiratory Rate 18 04/14/17 16:19 Blood Pressure 119/61 04/14/17 16:19 Pulse Oximetry 98 04/14/17 16:19 Height and Weight: Height 1.73 m Weight 140.5 kg Body Mass Index 47.0 - Medications Inpatient Medications: Current Medications Acetaminophen (Tylenol) 325 mg PO Q5H PRN PRN Reason: Discomfort Cefazolin Sodium 2 g/ Sodium (Chloride) 100 mls @ 200 mls/hr IV Q8HR LEONIDAS Last Admin: 04/14/17 18:26 Dose: 200 mls/hr Sodium Chloride (Normal Saline) 1,000 mls @ 50 mls/hr IV .Q20H LEONIDAS Insulin Aspart (Novolog) 15 unit SQ WM LEONIDAS Insulin Glargine (Lantus) 45 unit SQ HS LEONIDAS Nebivolol (Bystolic) 5 mg PO DAILY LEONIDAS Sodium Chloride (Normal Saline) 500 ml IV PRN PRN Last Admin: 04/14/17 18:26 Dose: 500 ml - Medical History Cardiovascular: Reports: Hypertension Gastrointestional: Reports: Morbid Obesity Neuro/Musculoskeletal: Reports: Depression, Seizures, Other (cerebral palzy ) Renal/Endocrine: Reports: Other (an insufficiency ) - Surgical History Musculoskeletal Surgery/Tx: Reports: Other (leg fx ) Anesthesia Reactions: None Hx Family Anesthesia Reaction: No - Social History Smoking Status: Unknown if ever smoked Substance Use Type: does not use Alcohol Intake: never - Pertinent Findings Laboratory: CBC and BMP 04/14/17 16:48 04/14/17 16:48 BMP 04/14/17 16:48 Sodium 139 Potassium 4.5 Chloride 100 Carbon Dioxide 29 BUN 37.0 H Creatinine 1.4 Glucose 120 H Calcium 8.6 EKG: Sinus Rhythm - Physical Exam Respiratory Exam: Present: lungs clear, bilateral breath sounds equal Cardiovascular Exam: Present: regular rate and rhythm, no murmur - Airway Assessment Mallampati Score: III TMD: 3 Fingerbreadths Neck Extension: poor Teeth: poor dentation Overall Assessment: may be difficult intubation - ASA ASA Score: 3 - Plan Anesthesia: General TIVA - Discussion Discussion: Discussed risks/options/alternatives of anesthesia and questions answered. Patient consents. Nursing pain assessment noted. Attestation Statement: Prior to the delivery of any anesthetic medication, I examined the patient, developed the plan, obtained the patient's consent and discussed the risk and benefits of the procedure with the patient/guardian.
[2017-04-14] MEDS: ACETAMINOPHEN 325 MG TABLET PO PRN (19:24)
[2017-04-14] MEDS ORDERED: INSULIN GLARGINE 100unit/ml INJECTION SQ SCH (21:00)
[2017-04-15] MEDS: MORPHINE SULFATE 2mg INJECTION IVP PRN ×2 (00:01→22:29)
[2017-04-15] MEDS: CEFAZOLIN 2 G in NS 100 ML IV SCH ×3 (01:03→17:43)
[2017-04-15] MEDS ORDERED: PROPOFOL 20 ML ONE (07:14)
[2017-04-15] MEDS ORDERED: LIDOCAINE 2% (100mg/5mL) PF 5ml vl ONE (07:14)
[2017-04-15] MEDS ORDERED: KETAMINE 500 MG/10 ML INJECTION ONE (07:14)
[2017-04-15] MEDS ORDERED: FentaNYL 100 MCG/2 ML INJECTION ONE (07:14)
[2017-04-15] MEDS ORDERED: BUPIVACAINE 0.25% (2.5mg/ml) PF 30ml INJECTION ONE (07:15)
[2017-04-15] MEDS ORDERED: NS 1,000 ML IV SCH (07:16)
[2017-04-15] MEDS: INSULIN ASPART 100unit/ml INJECTION SQ SCH ×5 (07:17→17:39)
[2017-04-15] MEDS ORDERED: BUPIVACAINE 0.25% (2.5mg/ml) PF 30ml INJECTION ID ONE (07:30)
[2017-04-15] MEDS ORDERED: ONDANSETRON 4 MG/2 ML INJECTION ONE (07:41)
[2017-04-15] MEDS ORDERED: EPHEDRINE 50mg/ml INJECTION ONE (07:55)
--- NOTE | 2017-04-15 08:39 | Post Procedure Note ---
Date of Procedure: 04/15/17 Orthopedic Surgeon: Preethi Orthopedic Assisting Surgeon: Esdras Willett Anesthesia: General TIVA Procedure: Procedures Operation Date: 04/15/17 07:30 <No data on this case meets the specified criteria> Left great toe amputation, irrigation and debridement and closure Condition: Stable Disposition: PACU
[2017-04-15] MEDS ORDERED: ONDANSETRON 4 MG/2 ML INJECTION IVP PRN (08:54)
[2017-04-15] MEDS ORDERED: SENNA + DOCUSATE TABLET PO PRN (08:54)
[2017-04-15] MEDS: ASPIRIN 81 MG CHEWABLE TABLET PO SCH ×2 (09:57→20:05)
[2017-04-15] MEDS: NOZIN NASAL SWAB NAS SCH ×2 (09:57→17:43)
--- NOTE | 2017-04-15 10:56 | Anesthesia Postoperative Note ---
- Date and Time Date: 04/15/17 Time: 09:20 - Status Patient Participated in Evaluation: Patient Participated in Person Vital Signs: Temperature 98.3 F 04/15/17 09:00 Pulse Rate 80 04/15/17 10:15 Respiratory Rate 16 04/15/17 09:45 Blood Pressure 118/61 04/15/17 10:15 Pulse Oximetry 96 04/15/17 10:15 Respiratory Function: Airway Patent Cardiovascular Function: Regular Pulse EKG: Sinus Rhythm Mental Status: Alert and Oriented Pain Intensity: 0 Hydration: IV Infusing Complications During Recover: None Apparent - Follow-Up Instructions Instructions: Per Surgeon
[2017-04-15] MEDS: ACETAMINOPHEN 325 MG TABLET PO PRN ×2 (12:14→20:12)
[2017-04-15] MEDS: HYDROCODONE/APAP 7.5 MG/325 MG TABLET PO PRN ×2 (12:52→18:48)
--- NOTE | 2017-04-15 14:02 | Operative Note ---
DATE OF SURGERY 04/14/2017 PREOPERATIVE DIAGNOSIS Left open proximal phalanx fracture of the great toe. POSTOPERATIVE DIAGNOSIS Left open proximal phalanx fracture of the great toe. PROCEDURE Irrigation left open great toe proximal phalanx fracture. SURGEON Corey Oro MD BENCH EXAMINER Esdras Willett PA-C ANESTHESIA None . FLUIDS None. EBL Minimal. INDICATIONS Mr. Stuart is a 56-year-old gentleman transferred today from [facility] after he tripped at his half-way in the [place] area. He typically is a non-ambulator. He does do some transferring. He was trying to transfer and got caught up and fell. He had immediate bleeding noted to the left great toe and was taken to the [place] ER to be evaluated. X-rays showed a comminuted fracture of the left great toe proximal phalanx. It appeared to be intraarticular and notably severe disuse osteopenia, again as the patient is nonambulatory. The patient also has cerebral palsy, mild mental deficiency and diabetes mellitus. He is currently being treated for leg ulcers and a sacral ulcer as well. The patient received cefazolin IV and tetanus update in the [place] ER. Sterile dressings were applied prior to transfer. He was examined by myself in his hospital room and was noted to have one small area of pulsatile bleeding on the plantar surface. He had an approximately 250- degree near-circumstantial laceration extending from the proximal great toe flexor crease wrapping around dorsally. The dorsal spine skin bridge was maintained by approximately 2.5 cm of skin. The patient had intact capillary refill to the tip of the toe but it was mildly compromised. He did have palpable posterior tibialis and dorsalis pedis arteries at about 1+. There was inability to get the patient to the operating room emergently and there was already an urgent case planned on a patient on the obstetrics floor who was a possible . With the policy of having only two anesthetists available we were unable to take him to the OR. I discussed with the patient and his DPOA irrigating this at the bedside this evening. Would plan to take him for formal irrigation, possible closure and possible pinning versus primary amputation in the morning. In doing so, would plan for antibiotics overnight tonight. After considering that this is likely the best option versus transfer, the patient's mother and the patient agreed to proceed with this route of treatment. DESCRIPTION OF PROCEDURE The patient was identified as was the operative extremity. The risks, benefits , alternatives and potential complications were discussed with the patient and his DPOA and informed consent was obtained. The left extremity was hung over the side of the bed over a sterile bucket. The area was cleaned. A clean technique was then utilized to irrigate 4 liters through the wound which was as described above, comprised of a 250-270 degree circumferential laceration with palpable bone fragment plantarly. There was felt to be an arterial bleeder plantarly that we did use electrocautery to cauterize. The toe remained with approximately less-than- 2-second capillary refill. After copious irrigation sterile saline-soaked gauze was packed around the laceration as the toe was placed in a more reduced position. This was followed by sterile Kerlix, ABDs and an Iker bandage. A note should be made the patient is neuropathic and has insensate feet and therefore required no anesthetic and tolerated the procedure. As mentioned, he will continue elevation of the foot overnight. Pain medication will be made available in case the patient should have some discomfort with plans to return to the OR in the morning for formal treatment. The patient tolerated this well and was left in his hospital room. ROSEMARY
--- NOTE | 2017-04-15 14:43 | Operative Note ---
DATE OF SURGERY 04/15/2017 PREOPERATIVE DIAGNOSIS Left great toe open proximal phalanx fracture. POSTOPERATIVE DIAGNOSIS Left great toe open proximal phalanx fracture with severe osteopenia. PROCEDURE 1. Left great toe metatarsophalangeal joint disarticulation/amputation. 2. I&D left open great toe fracture. SURGEON Corey Oro MD DEALER ANALYST Esdras Willett PA-C ANESTHESIA TIVA FLUIDS Please refer to Anesthesia chart EBL Minimal. TOURNIQUET None used. COMPLICATIONS None. CONDITION Stable in recovery room. SPECIMENS Great toe as well as proximal aspect of the proximal phalanx at fracture site were sent to Pathology for Gram-strain, culture and sensitivity and gross evaluation. INDICATIONS Mr. Stuart is a 56-year-old male who was admitted yesterday after being transferred from [facility] for a near-circumferential open proximal phalanx fracture of the great toe on the left side. The patient has cerebral palsy as well as mild MR and has essentially an insensate foot from diabetic neuropathy. He presented after the injury and was transferred here for evaluation. He was noted to have approximately 240-270 degrees laceration extending through the flexion crease of the MTP joint leaving only a 2 to 2.5 cm dorsal skin bridge. Initially the patient had capillary refill around 2 seconds. We were unable to get adequate OR access last evening so we proceeded with bedside I&D with sterile dressing application. Today the patient is to be taken to the operating theatre for formal treatment. I carefully discussed with the patient as well as his mother that his bone is quite osteopenic likely from chronic disuse although radiology had commented the possibility of osteomyelitis. The patient denies having any sores or ulcers on the foot in this area in the past, however. We discussed that because of the osteopenia this may not be amenable to fixing the fracture. Concern would be continued with a nonunion would cause continued deformity and further wound breakdown with simple skin closure. Also , if we were able to get pins this could be a nidus of infection for this patient with a somewhat fragile medical state. We discussed the possibility of primary amputation and closure. They were agreeable. DESCRIPTION OF PROCEDURE The patient was identified in the preoperative holding area. The operative extremity was identified and appropriately marked. Risks, benefits, alternatives and potential complications were again discussed with the patient' s family and informed consent was obtained. The patient was taken to the operating theatre, placed supine on the operating table. Appropriate cardiorespiratory monitors were applied. TIVA anesthesia was administered. A tourniquet was applied high on the left thigh though never inflated. The left lower extremity was then sterilely prepped and draped with Betadine scrub and prep. Surgical time-out was performed, confirmed with myself, the plant and machinery valuer and circulating nurse. Preoperative antibiotics had been given. The wound was initially irrigated with a liter of saline. We then began to explore the wound. At this time the toe was a bit more dusky with slightly delayed cap refill as well. Extending the toe and visualizing through the open laceration in the fracture site we were able to examine the proximal piece of bone remnant of the proximal phalanx at the MTP joint. Grasping this with Adson forceps the bone was quite soft and essentially crumbled. There was an intraarticular fragment as well on the lateral side. Quite frankly, there was no room for any type of purchase of pins, screw or plate fixation. However, gross inspection of both the proximal and distal fragments did not show any obvious signs of infection or osteomyelitis. Given the poor likelihood of bony healing as we are unable to get stable fixation combined with the patient's insensate limb and a non-ambulator, it was elected to proceed with MTP disarticulation and amputation of the great toe. We continued to irrigate the wound for an additional 2 liters at this time. Retractors were placed and a [place] elevator was used to elevate soft tissue off of the capsule and the flexor tendons of the great toe. Once able to be visualized the flexor tendon was sharply incised as were the collateral ligaments and capsule circumferentially to remove the proximal segment of the proximal phalanx. Skin was then incised dorsally to release the soft tissue of the great toe and the great toe and this bone fragment were then sent off as a specimen. Cursory irrigation was performed again. Any obvious bleeding was cauterized. The skin edges were checked for viability and bleeding and all were noted to have fairly good blood flow and it was felt that this could be primarily repaired. The wounds were irrigated again for a total of 6 liters of irrigation. Again checked for bleeding and electrocautery was used for hemostasis as necessary. Skin closure was then performed with multiple 3-0 nylon in an alternating simple and vertical mattress fashion. This had a nice pad to the tip and overall good repair without undue tension. [place] was injected then around the incision site and the dorsal first web space. Sterile Xeroform gauze was then applied followed by a bulky sterile dressing and overwrapped with an Iker bandage. A postop hard- soled shoe was then applied. We did take a final fluoroscopy view to assure no bony fragments were left and this showed complete resection of the great toe at the level of the MTP joint. The patient was awakened from anesthesia and taken to the recovery room in stable and satisfactory condition. ROSEMARY
--- NOTE | 2017-04-15 18:27 | Progress Note ---
- Date 04/15/17 Subjective: Pt doing well after coming out of OR. Reports no pain. Denies any cp, n/v/d, f/ c. Objective Vital signs: Temperature 95.8 F L 04/15/17 15:54 Pulse Rate 76 04/15/17 15:54 Respiratory Rate 16 04/15/17 15:54 Blood Pressure 127/59 04/15/17 15:54 Pulse Oximetry 95 04/15/17 15:54 Height/Weight/BMI: Height 5 ft 8 in Weight 144.9 kg Body Mass Index 47.0 - Constitutional Present: no acute distress - Routine HEENT Exam Head: Present: normocephalic, atraumatic - Routine Cardiovascular Exam Present: RRR, no murmur - Routine Abdominal Exam Present: soft, non distended, non tender - Routine Extremities Exam Present: edema. Absent: cyanosis, clubbing - Routine Skin Exam Present: intact, dry. Absent: erythema - Routine Neurological Exam Present: alert Results - Labs CBC & Chem 7: 04/15/17 03:55 04/15/17 03:55 Microbiology Results: Microbiology 04/15/17 08:13 Toe Great, Left, Bone Gram Stain - Final 04/15/17 08:13 Toe Great, Left, Bone Surgical Culture - Preliminary Culture Initiated - Results Pending Assessment and Plan Assessment and Plan: Left great toe open fracture -s/p surgery, ortho following DM -Will switch back to home 70/30 regimen 0f 66U in AM and 33U in PM -A1c is 6.5 so 70/30 regimen seems to be working well -Will hold metformin d/t Cr bump HLD -Cont. lovastatin, ASA HTN -Cont. bystolic -Hold lisinopril/hctz d/t cr bump -Hold lasix/potassium d/t Cr LOLA -Likely pre-renal, order UA, FeNa -Cr 1.4-->1.9 -IV fluids, monitor for now CP -PT/OT Hospital Course Summary Disclaimer: The visit summary below is not to be considered part of the above Progress Note. Hospital Course: 04/14/17 17:26 Will switch to basal-bolus insulin instead of continuing 70/30 tid. Calculations made based on 70 u w/ mills and 66 w/ br and reduced for now. Supplemental insulin available. Restarting bystolic. Monitor. May be able to restart ASA post-op. Holding lisinopril, kcl, metformin. Lab ordered. Dr. Oro consulted and planning to take pt to OR today. 04/15/17 18:27 Pt went to OR today, doing well afterwards. Cont. to monitor and follow along with surgery. Pt has slight bump in Cr, will do basic work up and follow for now.
[2017-04-15] MEDS: LOVASTATIN 40 MG TABLET PO SCH (20:05)
[2017-04-15] MEDS: NS 1,000 ML IV SCH ×2 (20:06)
[2017-04-16] MEDS: CEFAZOLIN 2 G in NS 100 ML IV SCH ×3 (01:02→16:13)
[2017-04-16] MEDS: NOZIN NASAL SWAB NAS SCH ×3 (01:03→16:13)
[2017-04-16] MEDS: HYDROCODONE/APAP 7.5 MG/325 MG TABLET PO PRN (03:07)
[2017-04-16] MEDS: INSULIN NPH/REG 70/30 INJECTION SQ SCH ×2 (08:39→12:18)
[2017-04-16] MEDS: ASCORBIC ACID 500 MG TABLET PO SCH ×2 (08:40→21:50)
[2017-04-16] MEDS: MULTI-VITAMIN + MINERAL TABLET PO SCH (08:40)
[2017-04-16] MEDS: CITALOPRAM 20 MG TABLET PO SCH (08:40)
[2017-04-16] MEDS: ASPIRIN 81 MG CHEWABLE TABLET PO SCH ×2 (08:40→21:50)
--- NOTE | 2017-04-16 09:17 | Orthopedic Progress Note ---
Date: Subjective/Severity of Illness: Mr. Stuart is post op day one of amputation at the MTP joint for open left great toe proximal phalanx fracture with underlying DM, peripheral neuropathy and non-ambulator status. He is doing very well this morning. Denies pain. No nausea, vomiting, fever, or chills. Tolerating po well. We sent the toe for pathology and it has shown gram + cocci. The wound and bone appeared clean at the time of index bedside washout and formal surgery yesterday. Orthopedic Objective PO Vital signs: Temperature 97.8 F 04/16/17 07:19 Pulse Rate 67 04/16/17 07:19 Respiratory Rate 18 04/16/17 07:19 Blood Pressure 111/56 04/16/17 07:19 Pulse Oximetry 94 04/16/17 07:19 Height and Weight: Height 5 ft 8 in Weight 322 lb 1.526 oz Body Mass Index 47.0 - Constitutional General Appearance: Present: alert, orientated x3, obese - Respiratory Exam Present: non-labored - Cardiovascular Exam Present: peripheral edema, pedal pulses intact (1 plus post tib) - Abdominal Exam Present: soft. Absent: tenderness, distended - Extremities Exam Extremities: Present: non tender. Absent: Yudi's sign - Surgical Site Incision: clean, dry, intact, dressing intact, no drainage, bloody drainage present - Integumentary Exam Present: pink - Lymphatic Lymphatic: Absent: lymphedema - Neurological Exam Present: intact to light touch (but decreased secondary to peripheral neruopathy ) - Psychiatric Exam Present: alert, normal affect, attentive - Wound Management Foot Wound Type: Amputation (left great toe) - Labs Result Diagrams: 04/16/17 04:27 04/16/17 04:27 Abnormal lab results 04/16/17 04/16/17 Range/Units 04:27 04:27 RBC 2.69 L (4.50-5.90) M/MM3 Hgb 8.1 L (13.5-17.5) GM/DL Hct 25.2 L (41-53) % Eos % (Auto) 7.6 H (0-4) % Eos # (Auto) 0.7 H (0-0.5) T/MM3 BUN 36.0 H (9-20) MG/DL Glucose 116 H (75-110) MG/DL Calcium 8.2 L (8.4-10.2) MG/DL H & H 04/14/17 04/15/17 04/16/17 Range/Units 16:48 03:55 04:27 Hgb 10.4 L 9.1 L D 8.1 L (13.5-17.5) GM/DL Hct 31.6 L 28.1 L D 25.2 L (41-53) % Orthopedic Assessment and Plan (1) Open fracture of phalanx of left great toe Status: Acute Qualifiers: Encounter type: initial encounter Phalanx: proximal Fracture alignment: displaced Qualified Code(s): S92.412B - Displaced fracture of proximal phalanx of left great toe, initial encounter for open fracture Assessment and Plan: POD 1 sp left great toe amputation Doing well from a pain aspect. Specimen was sent and showed G+ cocci. Cultures and gross path pending. Will continue Cefazolin and consult Dr. Lopez with ID for definitive management. Patient had been on Bactrim for leg ulcers and cellulitis at some point according to prior records. Unsure if he was still getting this at the senior living or not. Denies prior foot ulcerations. Will check wound tomorrow. Dr. Lopez is welcome to view the wound if she wishes. May mobilize to chair if he wishes, but will need full lift and NWB/no transfer on left. Hospital Course Summary Disclaimer: The visit summary below is not to be considered part of the above Progress Note. Hospital Course: 04/14/17 17:26 Will switch to basal-bolus insulin instead of continuing 70/30 tid. Calculations made based on 70 u w/ mills and 66 w/ br and reduced for now. Supplemental insulin available. Restarting bystolic. Monitor. May be able to restart ASA post-op. Holding lisinopril, kcl, metformin. Lab ordered. Dr. Oro consulted and planning to take pt to OR today. 04/15/17 18:27 Pt went to OR today, doing well afterwards. Cont. to monitor and follow along with surgery. Pt has slight bump in Cr, will do basic work up and follow for now.
--- NOTE | 2017-04-16 10:14 | Remote Fluorsocopy Report ---
Indication: GREAT TOE AMPUTATION PROCEDURE: RF toes LT 2 view min: Encounter: Initial Comparison: Radiographs dated April 14, 2017 Findings: Two fluoroscopic spot images show amputation of the phalanges of the great toe. Impression: Fluoroscopy as above. .
--- NOTE | 2017-04-16 10:40 | Progress Note ---
- Date 04/16/17 Subjective: Pt reports doing well. Denies any pain, n/v/d, f/c, cp or sob. Reports he has not gotten out of bed yet. Objective Vital signs: Temperature 97.8 F 04/16/17 07:19 Pulse Rate 67 04/16/17 07:19 Respiratory Rate 18 04/16/17 07:19 Blood Pressure 111/56 04/16/17 07:19 Pulse Oximetry 94 04/16/17 07:19 Height/Weight/BMI: Height 5 ft 8 in Weight 146.1 kg Body Mass Index 47.0 - Constitutional Present: no acute distress, well nourished - Routine HEENT Exam Head: Present: normocephalic, atraumatic Eye: Present: EOMI ENT: Present: mucous membranes moist - Routine Respiratory Exam Present: CTA bilaterally. Absent: wheezes - Routine Cardiovascular Exam Present: RRR, no murmur - Routine Abdominal Exam Present: soft, non distended, non tender - Routine Extremities Exam Present: no edema. Absent: cyanosis, clubbing - Routine Skin Exam Present: intact, dry. Absent: erythema - Routine Neurological Exam Present: alert Results - Labs CBC & Chem 7: 04/16/17 04:27 04/16/17 04:27 Microbiology Results: Microbiology 04/15/17 08:13 Toe Great, Left, Bone Gram Stain - Final 04/15/17 08:13 Toe Great, Left, Bone Surgical Culture - Preliminary Early growth Assessment and Plan Assessment and Plan: Left great toe open fracture with osteo -s/p surgery, ortho following -Surgical cx shows gram + cocci-->unclear if margins are clear? -Pt is on cefazolin and seems to be doing well -Will await on sensitivities and try to find out about margins DM -Will switch back to home 70/30 regimen 0f 66U in AM and 33U in PM -A1c is 6.5 so 70/30 regimen seems to be working well -Will hold metformin until Cr improves HLD -Cont. lovastatin, ASA Normoctyic Anemia -Hgb 10.4-->9.1-->8.1 -Likely dilution plus s/p surgery -No active bleeding suspected -Will do iron panel, cont. monitor HTN -Cont. bystolic -Hold lisinopril/hctz d/t cr bump -Hold lasix/potassium d/t Cr -BPs doing well LOLA -Likely pre-renal, UA unremarkable -Cr 1.4-->1.9-->1.5 -IV fluids, monitor for now Chronic LE wounds -Wound consult CP -PT/OT, not able to ambulate well DVT ppx -Lovenox Hospital Course Summary Disclaimer: The visit summary below is not to be considered part of the above Progress Note. Hospital Course: 04/14/17 17:26 Will switch to basal-bolus insulin instead of continuing 70/30 tid. Calculations made based on 70 u w/ mills and 66 w/ br and reduced for now. Supplemental insulin available. Restarting bystolic. Monitor. May be able to restart ASA post-op. Holding lisinopril, kcl, metformin. Lab ordered. Dr. Oro consulted and planning to take pt to OR today. 04/15/17 18:27 Pt went to OR today, doing well afterwards. Cont. to monitor and follow along with surgery. Pt has slight bump in Cr, will do basic work up and follow for now.
[2017-04-16] MEDS ORDERED: CALCIUM CARBONATE Chewable 500mg TABLET PO PRN (11:47)
[2017-04-16] MEDS: ENOXAPARIN 40 MG/0.4 ML INJECTION SQ SCH (12:18)
[2017-04-16] MEDS: ACETAMINOPHEN 325 MG TABLET PO PRN ×2 (12:57→17:56)
[2017-04-16] MEDS: LOVASTATIN 40 MG TABLET PO SCH (21:50)
[2017-04-17] MEDS: ACETAMINOPHEN 325 MG TABLET PO PRN (00:45)
[2017-04-17] MEDS: CEFAZOLIN 2 G in NS 100 ML IV SCH ×3 (01:04→16:54)
[2017-04-17] MEDS: NS FLUSH BAG 500ml IV PRN (01:05)
[2017-04-17] MEDS: NOZIN NASAL SWAB NAS SCH ×3 (01:06→16:55)
[2017-04-17] MEDS: HYDROCODONE/APAP 7.5 MG/325 MG TABLET PO PRN ×3 (01:33→20:51)
[2017-04-17] MEDS ORDERED: FALL RISK - PHARMACY CONSULT XX ONE (02:56)
[2017-04-17] MEDS: INSULIN NPH/REG 70/30 INJECTION SQ SCH ×3 (09:15→16:55)
[2017-04-17] MEDS: CITALOPRAM 20 MG TABLET PO SCH (09:16)
[2017-04-17] MEDS: ASPIRIN 81 MG CHEWABLE TABLET PO SCH ×2 (09:16→20:51)
[2017-04-17] MEDS: MULTI-VITAMIN + MINERAL TABLET PO SCH (09:16)
[2017-04-17] MEDS: ASCORBIC ACID 500 MG TABLET PO SCH ×2 (09:16→20:51)
[2017-04-17] MEDS: ENOXAPARIN 40 MG/0.4 ML INJECTION SQ SCH (09:17)
--- NOTE | 2017-04-17 09:35 | Infectious Disease Consult ---
Infectious Disease Consult Date of Consultation: 04/17/17 Requesting Physician: Corey Oro Reason for Consultation: antibiotic recs History of Present Illness: Mr. Stuart is a 56 y/o man with DM2, cerebral palsy, epilepsy, GERD, HTN. He is a [facility] resident who had a fall on 04/14/17 and sustained a left great toe fracture with laceration and exposed bone. He was taken to the OR on 04/15 and had amputation of the L great toe. Cultures show a GPC on the stain, and there is early growth of a possible GPC. Path is pending. He is on Ancef. He is not able to give a detailed history. His mother is present and reports that he's also been treated for infection in his LEs several months ago. She describes some cellulitis and wounds. She also reports that he gets rashes from PCNs and cephalosporins, but he is tolerating ancef without problems. She can't recall his reaction to Vanco. She initially thought it was confusion, but I think that's most likely his reaction to quinolones. I've been asked to help with antibiotics. He lives in a NH and is essentially non-ambulatory. Medications Home Medications Medication Instructions Recorded Confirmed Type Acetaminophen [Tylenol] 500 - 1,000 mg PO Q8H 04/15/17 04/15/17 History Ascorbate Calcium [Vitamin C] 500 mg PO BID 04/15/17 04/15/17 History Aspirin [Aspirin EC] 81 mg PO DAILY 04/15/17 04/15/17 History Citalopram [Celexa] 1 tab PO DAILY 04/15/17 04/15/17 History Docusate Sodium 100 mg PO Q12H PRN 04/15/17 04/15/17 History Furosemide [Lasix] 40 mg PO DAILY 04/15/17 04/15/17 History Lisinopril/Hctz [Prinzide 1 tab PO DAILY 04/15/17 04/15/17 History 2025] Lovastatin [Mevacor] 40 mg PO HS 04/15/17 04/15/17 History Metformin [Glucophage] 1 tab PO BIDWM 04/15/17 04/15/17 History Milk of Magnesia [Mom] 30 ml PO PRN PRN 04/15/17 04/15/17 History Multivitamin [One Daily] 1 each PO DAILY 04/15/17 04/15/17 History Nebivolol [Bystolic] 5 mg PO DAILY 04/15/17 04/15/17 History PEG 3350 17gm PACKET [Miralax] 17 gm PO DAILY PRN 04/15/17 04/15/17 History Potassium Chloride [Klor-Con 10] 10 meq PO BIDWM 04/15/17 04/15/17 History Allergies Allergy/AdvReac Type Severity Reaction Status Date / Time Penicillins Allergy Severe Rash Verified 04/14/17 16:11 Cephalosporins Allergy Verified 04/15/17 16:24 ciprofloxacin [From Cipro] Allergy Verified 04/15/17 16:24 clindamycin Allergy Verified 04/15/17 16:24 levofloxacin [From Levaquin] Allergy Verified 04/15/17 16:24 vancomycin Allergy Verified 04/15/17 16:24 [facility] Patient Stated Medical History Seizures Yes Hypertension Yes Other Musculoskeletal Yes: cerebral palzy Depression Yes Clinic Medical History Open fracture of phalanx of left great toe (Acute Medical) DM2 cerebral palsy epilepsy essential HTN depression dyslipidemia wounds to BLE GERD CKD Surgical History: left femur ORIF; herniorraphy; tonsilectomy. I&D L great toe open fracture 04/14, amputation L great toe 04/15 Family History: Father of lung ca. Brother with CAD at age 32. Mother and sister in good health. - Social History Smoking status: Never smoker Substance use type: does not use Alcohol intake frequency: does not drink Housing: [facility] Current residence: [facility] Review of Systems ROS unobtainable: due to mental status - Constitutional Constitutional: Absent: chills, fever(s) Exam Vital Signs: Temperature 96.2 F L 04/17/17 08:00 Pulse Rate 63 04/17/17 08:00 Respiratory Rate 20 04/17/17 07:18 Blood Pressure 116/69 04/17/17 08:00 Pulse Oximetry 94 04/17/17 08:00 Height/Weight/BMI: Height 1.73 m Weight 145.6 kg Body Mass Index 47.0 - Constitutional Present: no acute distress, well nourished, well developed - Routine HEENT Exam Head: Present: normocephalic, atraumatic Eye: Present: EOMI, PERRL ENT: Present: mucous membranes moist Comments: poor dentition - Routine Neck Exam Present: supple - Routine Respiratory Exam Present: CTA bilaterally - Routine Cardiovascular Exam Present: RRR - Routine Abdominal Exam Present: soft, normoactive bowel sounds, non distended, non tender - Routine Extremities Exam Present: edema (trace LEs). Absent: cyanosis, clubbing Comments: LEs have decreased hair growth consistent with neuropathy - Routine Skin Exam Present: intact. Absent: rash Comments: L great toe incision is intact with sutures, there is some soft tissue edema. No signficiant cellulitis. He has an area of erythema with a small superficial wound L anterior pratt. Another small superficial wound R anterior pratt - Routine Neurological Exam Present: alert, CN II-XII intact - Routine Psychiatric Exam Present: normal affect Results - Labs CBC & Chem 7: 04/17/17 03:54 04/17/17 03:54 Microbiology Results: Microbiology 04/15/17 08:13 Toe Great, Left, Bone Gram Stain - Final 04/15/17 08:13 Toe Great, Left, Bone Surgical Culture - Preliminary Early growth Impression: S/p fall resulting in traumatic fracture L great toe with exposed bone, s/p amputation 04/15/17, culture with GPC. DM II, IR CP Epilepsy Sacral wound Non-ambulatory status Peripheral neuropathy CKD Multiple antibiotic allergies Recommendation: Continue Ancef for now. Await culture results. I discussed with his mother that I would continue IV antibiotics until the Path reports is available. If it shows no residual osteomyelitis, then he could be treated with antibiotics for just 2 weeks. This would not have to be IV. If there is still evidence of osteomyelitis, recommend IV antibiotics for 6 weeks. I will not be able to return to [place] this week. Please call with questions.
--- NOTE | 2017-04-17 10:52 | Wound Care Progress Note ---
Wound Management - Patient Status Premedicated Prior to Dressing Change: No - Wound Right Upper Posterior Thigh Wound Type: Moisture Associated Dermatitis Wound Present on Admission?: Yes Length: 6 Width: 7 Depth: 0.1 Wound Bed Appearance: Beefy Red (Dendued) Prisca Wound Appearance: Bright Red Tunneling: No Undermining: No Drainage Description: Sanguineous Drainage Amount: Scant Drainage Odor: Slight Odor Dressing Status: Changed (Advanced skin protectant applied) Dressing Change Date: 04/17/17 Dressing Change Time: 10:00 Dressing Change Patient Tolerance: Tolerated Well Microbiology: Microbiology 04/15/17 08:13 Toe Great, Left, Bone Gram Stain - Final 04/15/17 08:13 Toe Great, Left, Bone Surgical Culture - Preliminary Early growth Right Heel Wound Type: Pressure Injury (Callous at the heel and achillies) Wound Present on Admission?: Yes Wound Staging: Stage I Wound Bed Appearance: Pale Prisca Wound Appearance: Well Defined Tunneling: No Undermining: No Drainage Description: Serous Drainage Amount: None Drainage Odor: No Odor Dressing Status: Changed Primary Dressing: Mepilex Dressing Change Date: 04/17/17 Dressing Change Time: 10:00 Microbiology: Microbiology 04/15/17 08:13 Toe Great, Left, Bone Gram Stain - Final 04/15/17 08:13 Toe Great, Left, Bone Surgical Culture - Preliminary Early growth
--- NOTE | 2017-04-17 11:35 | Progress Note ---
- Date 04/17/17 Subjective: Pt reports doing well this am. Denies any n/v/d, f/c, cp or sob. Reports pain level is good. Mom is at bedside. Objective Vital signs: Temperature 96.2 F L 04/17/17 08:00 Pulse Rate 63 04/17/17 08:00 Respiratory Rate 20 04/17/17 07:18 Blood Pressure 116/69 04/17/17 08:00 Pulse Oximetry 94 04/17/17 08:00 Height/Weight/BMI: Height 5 ft 8 in Weight 145.6 kg Body Mass Index 47.0 - Constitutional Present: no acute distress - Routine HEENT Exam Head: Present: normocephalic, atraumatic Eye: Present: EOMI - Routine Respiratory Exam Present: CTA bilaterally. Absent: dyspnea - Routine Cardiovascular Exam Present: RRR, no murmur - Routine Abdominal Exam Present: soft, non distended, non tender - Routine Extremities Exam Present: no edema. Absent: cyanosis, clubbing - Routine Skin Exam Present: intact, dry. Absent: erythema - Routine Neurological Exam Present: alert Results - Labs CBC & Chem 7: 04/17/17 03:54 04/17/17 03:54 Microbiology Results: Microbiology 04/15/17 08:13 Toe Great, Left, Bone Gram Stain - Final 04/15/17 08:13 Toe Great, Left, Bone Surgical Culture - Preliminary Early growth Assessment and Plan Assessment and Plan: Left great toe open fracture with osteo -s/p surgery, ortho following -Surgical cx shows gram + cocci-->awaiting pathology to determine if margins clear -Pt is on cefazolin and seems to be doing well -Will await on sensitivities and margins - with ID is following DM -back on home 70/30 regimen 0f 66U in AM and 33U in PM -A1c is 6.5 so 70/30 regimen seems to be working well -Will restart metformin since Cr has improved HLD -Cont. lovastatin, ASA Normoctyic Anemia -Hgb 10.4-->9.1-->8.1-->8 -Likely dilution plus s/p surgery -No active bleeding suspected -iron panel on low side of normal, may benefit from iron supplement, cont. monitor HTN -Cont. bystolic -Hold lisinopril/hctz, lasix/potassium-->Was initially holding d/t Cr -BPs actually doing well for multiple days now so will hold meds unless BPs start increasing LOLA -Resolved -Likely pre-renal, UA unremarkable -Cr 1.4-->1.9-->1.5-->1.1 Chronic LE wounds -Wound consult CP -PT/OT, not able to ambulate well DVT ppx -Lovenox Hospital Course Summary Disclaimer: The visit summary below is not to be considered part of the above Progress Note. Hospital Course: 04/14/17 17:26 Will switch to basal-bolus insulin instead of continuing 70/30 tid. Calculations made based on 70 u w/ mills and 66 w/ br and reduced for now. Supplemental insulin available. Restarting bystolic. Monitor. May be able to restart ASA post-op. Holding lisinopril, kcl, metformin. Lab ordered. Dr. Oro consulted and planning to take pt to OR today. 04/15/17 18:27 Pt went to OR today, doing well afterwards. Cont. to monitor and follow along with surgery. Pt has slight bump in Cr, will do basic work up and follow for now. 04/17/17 11:35 Pt doing well and has no complaints. Awaiting margins from pathology to determine abx length of tx. ID following.
--- NOTE | 2017-04-17 11:42 | Orthopedic Progress Note ---
Date: Subjective/Severity of Illness: Goran is doing well. He likes the care he is getting here. Not painful at all. Dressings have been dry. Dr Lopez to see him this AM. Orthopedic Objective PO Vital signs: Temperature 96.2 F L 04/17/17 08:00 Pulse Rate 63 04/17/17 08:00 Respiratory Rate 20 04/17/17 07:18 Blood Pressure 116/69 04/17/17 08:00 Pulse Oximetry 94 04/17/17 08:00 Height and Weight: Height 5 ft 8 in Weight 320 lb 15.889 oz Body Mass Index 47.0 - Constitutional General Appearance: Present: alert, no acute distress, obese - Respiratory Exam Present: non-labored - Cardiovascular Exam Present: peripheral edema, pedal pulses intact - Extremities Exam Extremities: Present: pulses intact - Surgical Site Incision: clean, dry, intact, dressing intact, bloody drainage present (Minimal amount of bloody drainage.) - Integumentary Exam Present: pink - Neurological Exam Present: intact to light touch (but decreased secondary to peripheral neruopathy ) - Psychiatric Exam Present: alert - Wound Management Foot Wound Type: Amputation (left great toe) Right Upper Posterior Thigh Wound Type: Moisture Associated Dermatitis Wound Length: 6 Wound Width: 7 Wound Depth: 0.1 Bed Appearance: Beefy Red (Dendued) Surrounding Tissue Appearance: Bright Red Drainage Description: Sanguineous Drainage Amount: Scant Drainage Odor: Slight Odor Dressing Status: Changed (Advanced skin protectant applied) Dressing Change Date: 04/17/17 Dressing Change Time: 10:00 Dressing Change Patient Tolerance: Tolerated Well Right Heel Wound Type: Pressure Injury (Callous at the heel and achillies) Wound Staging: Stage I Bed Appearance: Pale Surrounding Tissue Appearance: Well Defined Drainage Description: Serous Drainage Amount: None Drainage Odor: No Odor Dressing Status: Changed Dressing Change Date: 04/17/17 Dressing Change Time: 10:00 - Labs Result Diagrams: 04/17/17 03:54 04/17/17 03:54 Abnormal lab results 04/17/17 04/17/17 Range/Units 03:54 03:54 RBC 2.63 L (4.50-5.90) M/MM3 Hgb 8.0 L (13.5-17.5) GM/DL Hct 24.6 L (41-53) % [place] % (Auto) 9.9 H (0-9.0) % Eos % (Auto) 9.3 H (0-4) % [place] # (Auto) 1.0 H (0-0.8) T/MM3 Eos # (Auto) 0.9 H (0-0.5) T/MM3 Abs Immat Gran (auto) 0.05 H (0.00-0.03) T/MM3 BUN 23.0 H (9-20) MG/DL Albumin 3.4 L (3.5-5.0) G/DL H & H 04/14/17 04/15/17 04/16/17 Range/Units 16:48 03:55 04:27 Hgb 10.4 L 9.1 L D 8.1 L (13.5-17.5) GM/DL Hct 31.6 L 28.1 L D 25.2 L (41-53) % 04/17/17 Range/Units 03:54 Hgb 8.0 L (13.5-17.5) GM/DL Hct 24.6 L (41-53) % Orthopedic Assessment and Plan (1) Open fracture of phalanx of left great toe Status: Acute Qualifiers: Encounter type: initial encounter Phalanx: proximal Fracture alignment: displaced Qualified Code(s): S92.412B - Displaced fracture of proximal phalanx of left great toe, initial encounter for open fracture Assessment and Plan: POD 2 sp left great toe amputation Doing well from a pain aspect. Specimen was sent and showed G+ cocci. Cultures and gross path pending. Dr Lopez looked at the wound with me this AM. Discharge planning per CM. Will likely go back to [place] but nothing has been arranged yet. Dr Lopez full consult pending. May mobilize to chair if he wishes, but will need full lift and NWB/no transfer on left. Hospital Course Summary Disclaimer: The visit summary below is not to be considered part of the above Progress Note. Hospital Course: 04/14/17 17:26 Will switch to basal-bolus insulin instead of continuing 70/30 tid. Calculations made based on 70 u w/ mills and 66 w/ br and reduced for now. Supplemental insulin available. Restarting bystolic. Monitor. May be able to restart ASA post-op. Holding lisinopril, kcl, metformin. Lab ordered. Dr. Oro consulted and planning to take pt to OR today. 04/15/17 18:27 Pt went to OR today, doing well afterwards. Cont. to monitor and follow along with surgery. Pt has slight bump in Cr, will do basic work up and follow for now. 04/17/17 11:35 Pt doing well and has no complaints. Awaiting margins from pathology to determine abx length of tx. ID following.
[2017-04-17] MEDS: LOVASTATIN 40 MG TABLET PO SCH (20:51)
[2017-04-18] MEDS: NOZIN NASAL SWAB NAS SCH ×3 (00:31→16:56)
[2017-04-18] MEDS: CEFAZOLIN 2 G in NS 100 ML IV SCH ×3 (00:31→16:53)
--- NOTE | 2017-04-18 07:43 | Orthopedic Progress Note ---
Date: Subjective/Severity of Illness: Goran is sleepy today. He has not been needing much pain medication; he is just tired. No complaints. Cultures are growing Corynebacterium. No path report yet. Orthopedic Objective PO Vital signs: Temperature 96.1 F L 04/18/17 07:28 Pulse Rate 69 04/18/17 07:28 Respiratory Rate 17 04/18/17 07:28 Blood Pressure 128/70 04/18/17 07:28 Pulse Oximetry 92 04/18/17 07:28 Height and Weight: Height 5 ft 8 in Weight 320 lb 15.889 oz Body Mass Index 47.0 - Constitutional General Appearance: Present: alert, no acute distress, obese - Respiratory Exam Present: non-labored - Cardiovascular Exam Present: peripheral edema, pedal pulses intact - Abdominal Exam Present: soft. Absent: tenderness, distended - Extremities Exam Extremities: Present: pulses intact (1 plus.), amputation (great toe, left ). Absent: calf tenderness - Surgical Site Incision: clean, dry, intact, dressing intact - Integumentary Exam Present: pink - Lymphatic Lymphatic: Absent: lymphedema - Neurological Exam Present: intact to light touch (but decreased secondary to peripheral neruopathy ) - Psychiatric Exam Present: alert - Wound Management Foot Wound Type: Amputation (left great toe) Right Upper Posterior Thigh Wound Type: Moisture Associated Dermatitis Wound Length: 6 Wound Width: 7 Wound Depth: 0.1 Bed Appearance: Beefy Red (Dendued) Surrounding Tissue Appearance: Bright Red Drainage Description: Sanguineous Drainage Amount: Scant Drainage Odor: Slight Odor Dressing Status: Changed (Advanced skin protectant applied) Dressing Change Date: 04/17/17 Dressing Change Time: 10:00 Dressing Change Patient Tolerance: Tolerated Well Right Heel Wound Type: Pressure Injury (Callous at the heel and achillies) Wound Staging: Stage I Bed Appearance: Pale Surrounding Tissue Appearance: Well Defined Drainage Description: Serous Drainage Amount: None Drainage Odor: No Odor Dressing Status: Changed Dressing Change Date: 04/17/17 Dressing Change Time: 10:00 - Labs Result Diagrams: 04/18/17 07:18 04/17/17 03:54 Abnormal lab results 04/17/17 04/18/17 Range/Units 03:54 07:18 WBC 11.2 H (4.5-11.0) T/MM3 RBC 2.80 L (4.50-5.90) M/MM3 Hgb 8.4 L (13.5-17.5) GM/DL Hct 26.4 L (41-53) % [place] % (Auto) 12.1 H (0-9.0) % Eos % (Auto) 8.6 H (0-4) % [place] # (Auto) 1.4 H (0-0.8) T/MM3 Eos # (Auto) 1.0 H (0-0.5) T/MM3 Abs Immat Gran (auto) 0.06 H (0.00-0.03) T/MM3 C-React Prot High Sens 12.73 H (0.00-0.90) mg/L H & H 04/14/17 04/15/17 04/16/17 Range/Units 16:48 03:55 04:27 Hgb 10.4 L 9.1 L D 8.1 L (13.5-17.5) GM/DL Hct 31.6 L 28.1 L D 25.2 L (41-53) % 04/17/17 04/18/17 Range/Units 03:54 07:18 Hgb 8.0 L 8.4 L (13.5-17.5) GM/DL Hct 24.6 L 26.4 L (41-53) % Orthopedic Assessment and Plan (1) Open fracture of phalanx of left great toe Status: Acute Qualifiers: Encounter type: initial encounter Phalanx: proximal Fracture alignment: displaced Qualified Code(s): S92.412B - Displaced fracture of proximal phalanx of left great toe, initial encounter for open fracture Assessment and Plan: POD 3 sp left great toe amputation Doing well from a pain aspect. Specimen shows Corynebacterium. path pending. Dr Lopez looked at the wound with me this AM. Discharge planning per . Will likely go back to [place] but nothing has been arranged yet. Dr Lopez indicates to continue Ancef and await path report for decision on IV vs PO antibiotic. May mobilize to chair if he wishes, but will need full lift and NWB/no transfer on left. Hospital Course Summary Disclaimer: The visit summary below is not to be considered part of the above Progress Note. Hospital Course: 04/14/17 17:26 Will switch to basal-bolus insulin instead of continuing 70/30 tid. Calculations made based on 70 u w/ mills and 66 w/ br and reduced for now. Supplemental insulin available. Restarting bystolic. Monitor. May be able to restart ASA post-op. Holding lisinopril, kcl, metformin. Lab ordered. Dr. Oro consulted and planning to take pt to OR today. 04/15/17 18:27 Pt went to OR today, doing well afterwards. Cont. to monitor and follow along with surgery. Pt has slight bump in Cr, will do basic work up and follow for now. 04/17/17 11:35 Pt doing well and has no complaints. Awaiting margins from pathology to determine abx length of tx. ID following.
[2017-04-18] MEDS: MULTI-VITAMIN + MINERAL TABLET PO SCH (09:59)
[2017-04-18] MEDS: ASPIRIN 81 MG CHEWABLE TABLET PO SCH ×2 (10:00→21:51)
[2017-04-18] MEDS: CITALOPRAM 20 MG TABLET PO SCH (10:00)
[2017-04-18] MEDS: INSULIN NPH/REG 70/30 INJECTION SQ SCH ×2 (10:00→16:55)
[2017-04-18] MEDS: ASCORBIC ACID 500 MG TABLET PO SCH ×2 (10:00→21:51)
[2017-04-18] MEDS: ENOXAPARIN 40 MG/0.4 ML INJECTION SQ SCH (10:01)
[2017-04-18] MEDS: NS FLUSH BAG 500ml IV PRN (10:05)
--- NOTE | 2017-04-18 14:54 | Progress Note ---
- Date 04/18/17 Subjective: Pt a little somnolent this am but wakes up to verbal stimuli and follows command. Denies any cp, n/v/d, f/c. Tolerating PO intake well. Objective Vital signs: Temperature 96.4 F L 04/18/17 13:51 Pulse Rate 72 04/18/17 13:51 Respiratory Rate 16 04/18/17 13:51 Blood Pressure 124/67 04/18/17 13:51 Pulse Oximetry 94 04/18/17 13:51 Height/Weight/BMI: Height 5 ft 8 in Weight 148 kg Body Mass Index 47.0 - Constitutional Present: no acute distress, somnolent - Routine HEENT Exam Head: Present: normocephalic, atraumatic Eye: Present: EOMI ENT: Present: mucous membranes moist - Routine Respiratory Exam Present: CTA bilaterally. Absent: dyspnea - Routine Cardiovascular Exam Present: RRR, no murmur - Routine Abdominal Exam Present: soft, non distended, non tender - Routine Extremities Exam Present: no edema. Absent: cyanosis, clubbing - Routine Skin Exam Present: dry, lesions (LE ulcers). Absent: erythema Results - Labs CBC & Chem 7: 04/18/17 07:18 04/18/17 07:18 Microbiology Results: Microbiology 04/15/17 08:13 Toe Great, Left, Bone Gram Stain - Final 04/15/17 08:13 Toe Great, Left, Bone Surgical Culture - Final Corynebacterium species Assessment and Plan Assessment and Plan: Left great toe open fracture with osteo -s/p surgery, ortho following -Surgical cx shows corynebacterium-->this is likely contaminant?? -Will need to confirm with ID -Pt is on cefazolin and seems to be doing well -Will await to discuss with ID - with ID is following DM -back on home 70/30 regimen 0f 66U in AM and 33U in PM -A1c is 6.5 so 70/30 regimen seems to be working well -Will restart metformin since Cr has improved HLD -Cont. lovastatin, ASA Normoctyic Anemia -Hgb 10.4-->9.1-->8.1-->8-->8.4 -Likely dilution plus s/p surgery -No active bleeding suspected -iron panel on low side of normal, may benefit from iron supplement, cont. monitor HTN -Cont. bystolic -Hold lisinopril/hctz, lasix/potassium-->Was initially holding d/t Cr -BPs actually doing well for multiple days now so will hold meds unless BPs start increasing LOLA -Resolved -Likely pre-renal, UA unremarkable -Cr 1.4-->1.9-->1.5-->1.1 Chronic LE wounds -Wound consult CP -PT/OT, not able to ambulate well DVT ppx -Lovenox Hospital Course Summary Disclaimer: The visit summary below is not to be considered part of the above Progress Note. Hospital Course: 04/14/17 17:26 Will switch to basal-bolus insulin instead of continuing 70/30 tid. Calculations made based on 70 u w/ mills and 66 w/ br and reduced for now. Supplemental insulin available. Restarting bystolic. Monitor. May be able to restart ASA post-op. Holding lisinopril, kcl, metformin. Lab ordered. Dr. Oro consulted and planning to take pt to OR today. 04/15/17 18:27 Pt went to OR today, doing well afterwards. Cont. to monitor and follow along with surgery. Pt has slight bump in Cr, will do basic work up and follow for now. 04/17/17 11:35 Pt doing well and has no complaints. Awaiting margins from pathology to determine abx length of tx. ID following.
[2017-04-18] MEDS: ACETAMINOPHEN 325 MG TABLET PO PRN (16:52)
[2017-04-18] MEDS: LOVASTATIN 40 MG TABLET PO SCH (21:51)
[2017-04-19] MEDS: CEFAZOLIN 2 G in NS 100 ML IV SCH ×3 (00:32→17:38)
[2017-04-19] MEDS: NOZIN NASAL SWAB NAS SCH ×4 (00:32→23:12)
[2017-04-19] MEDS: HYDROCODONE/APAP 7.5 MG/325 MG TABLET PO PRN ×2 (02:30→10:18)
--- NOTE | 2017-04-19 08:50 | Progress Note ---
- Date 04/19/17 Subjective: Pt alert and oriented today. Doing well, has no complaints. Denies any cp, n/v/d , f/c, or sob. Tolerating PO intake well and having BMs. Objective Vital signs: Temperature 96.8 F 04/19/17 08:00 Pulse Rate 68 04/19/17 08:00 Respiratory Rate 16 04/19/17 08:00 Blood Pressure 118/77 04/19/17 08:00 Pulse Oximetry 94 04/19/17 08:00 Height/Weight/BMI: Height 5 ft 8 in Weight 147.5 kg Body Mass Index 47.0 - Constitutional Present: no acute distress - Routine HEENT Exam Head: Present: normocephalic, atraumatic Eye: Present: EOMI ENT: Present: mucous membranes moist - Routine Respiratory Exam Present: CTA bilaterally. Absent: dyspnea - Routine Cardiovascular Exam Present: RRR, no murmur - Routine Abdominal Exam Present: soft, non tender. Absent: distended - Routine Extremities Exam Present: no edema. Absent: cyanosis, clubbing - Routine Skin Exam Present: intact, dry. Absent: erythema - Routine Neurological Exam Present: alert, oriented X3 Results - Labs CBC & Chem 7: 04/18/17 07:18 04/18/17 07:18 Microbiology Results: Microbiology 04/15/17 08:13 Toe Great, Left, Bone Gram Stain - Final 04/15/17 08:13 Toe Great, Left, Bone Surgical Culture - Final Corynebacterium species Assessment and Plan Assessment and Plan: Left great toe open fracture with osteo -s/p surgery, ortho following -Surgical cx shows corynebacterium-->this is likely contaminant -ID recommended to keep pt on IV abx until path results come back - with ID is following DM -back on home 70/30 regimen 0f 66U in AM and 33U in PM -A1c is 6.5 so 70/30 regimen seems to be working well -Will restart metformin since Cr has improved HLD -Cont. lovastatin, ASA Normoctyic Anemia -Hgb 10.4-->9.1-->8.1-->8-->8.4 -Likely dilution plus s/p surgery -No active bleeding suspected -iron panel on low side of normal, may benefit from iron supplement, cont. monitor HTN -Cont. bystolic -Hold lisinopril/hctz, lasix/potassium-->Was initially holding d/t Cr -BPs actually doing well for multiple days now so will hold meds unless BPs start increasing LOLA -Resolved -Likely pre-renal, UA unremarkable -Cr 1.4-->1.9-->1.5-->1.1 Chronic LE wounds -Wound consult CP -PT/OT, not able to ambulate well DVT ppx -Lovenox Hospital Course Summary Disclaimer: The visit summary below is not to be considered part of the above Progress Note. Hospital Course: 04/14/17 17:26 Will switch to basal-bolus insulin instead of continuing 70/30 tid. Calculations made based on 70 u w/ mills and 66 w/ br and reduced for now. Supplemental insulin available. Restarting bystolic. Monitor. May be able to restart ASA post-op. Holding lisinopril, kcl, metformin. Lab ordered. Dr. Oro consulted and planning to take pt to OR today. 04/15/17 18:27 Pt went to OR today, doing well afterwards. Cont. to monitor and follow along with surgery. Pt has slight bump in Cr, will do basic work up and follow for now. 04/17/17 11:35 Pt doing well and has no complaints. Awaiting margins from pathology to determine abx length of tx. ID following.
[2017-04-19] MEDS: INSULIN NPH/REG 70/30 INJECTION SQ SCH ×2 (09:25→17:59)
[2017-04-19] MEDS: ASPIRIN 81 MG CHEWABLE TABLET PO SCH ×2 (09:26→21:32)
[2017-04-19] MEDS: ASCORBIC ACID 500 MG TABLET PO SCH ×2 (09:26→21:32)
[2017-04-19] MEDS: MULTI-VITAMIN + MINERAL TABLET PO SCH (09:27)
[2017-04-19] MEDS: CITALOPRAM 20 MG TABLET PO SCH (09:27)
[2017-04-19] MEDS: ENOXAPARIN 40 MG/0.4 ML INJECTION SQ SCH (09:27)
[2017-04-19] MEDS: METFORMIN 1,000 MG TABLET PO SCH ×2 (13:18→17:38)
[2017-04-19] MEDS: ACETAMINOPHEN 325 MG TABLET PO PRN (13:26)
[2017-04-19] MEDS: LOVASTATIN 40 MG TABLET PO SCH (21:32)
[2017-04-20] MEDS: HYDROCODONE/APAP 7.5 MG/325 MG TABLET PO PRN ×2 (00:24→01:38)
--- NOTE | 2017-04-20 10:00 | Progress Note ---
- Date 04/20/17 Subjective: Pt doing well. Denies any acute complaints, denies any n/v/d, f/c, cp or sob. Reports tolerating PO intake well. Having BMs. Objective Vital signs: Temperature 96.5 F L 04/20/17 09:02 Pulse Rate 72 04/20/17 09:02 Respiratory Rate 18 04/20/17 09:02 Blood Pressure 132/79 04/20/17 09:02 Pulse Oximetry 93 04/20/17 09:02 Height/Weight/BMI: Height 5 ft 8 in Weight 147.5 kg Body Mass Index 47.0 - Constitutional Present: no acute distress, obese - Routine HEENT Exam Head: Present: normocephalic, atraumatic - Routine Respiratory Exam Present: CTA bilaterally. Absent: dyspnea - Routine Cardiovascular Exam Present: RRR, no murmur - Routine Abdominal Exam Present: soft. Absent: non distended, non tender - Routine Extremities Exam Present: no edema. Absent: cyanosis, clubbing - Routine Skin Exam Present: intact, dry. Absent: erythema - Routine Neurological Exam Present: alert, oriented X3 Results - Labs CBC & Chem 7: 04/18/17 07:18 04/20/17 04:08 Microbiology Results: Microbiology 04/15/17 08:13 Toe Great, Left, Bone Gram Stain - Final 04/15/17 08:13 Toe Great, Left, Bone Surgical Culture - Final Corynebacterium species Assessment and Plan Assessment and Plan: Left great toe open fracture with osteo -s/p surgery, ortho following -Surgical cx shows corynebacterium-->this is likely contaminant -ID recommended to keep pt on IV abx until path results come back - with ID is following DM -back on home 70/30 regimen 0f 66U in AM and 33U in PM -A1c is 6.5 so 70/30 regimen seems to be working well -Will restart metformin since Cr has improved HLD -Cont. lovastatin, ASA Normoctyic Anemia -Hgb 10.4-->9.1-->8.1-->8-->8.4 -Likely dilution plus s/p surgery -No active bleeding suspected -iron panel on low side of normal, may benefit from iron supplement, cont. monitor HTN -Cont. bystolic -Hold lisinopril/hctz, lasix/potassium-->Was initially holding d/t Cr -BPs actually doing well for multiple days now so will hold meds unless BPs start increasing LOLA -Resolved -Likely pre-renal, UA unremarkable -Cr 1.4-->1.9-->1.5-->1.1 Chronic LE wounds -Wound consult CP -PT/OT, not able to ambulate well DVT ppx -Lovenox Hospital Course Summary Disclaimer: The visit summary below is not to be considered part of the above Progress Note. Hospital Course: 04/14/17 17:26 Will switch to basal-bolus insulin instead of continuing 70/30 tid. Calculations made based on 70 u w/ mills and 66 w/ br and reduced for now. Supplemental insulin available. Restarting bystolic. Monitor. May be able to restart ASA post-op. Holding lisinopril, kcl, metformin. Lab ordered. Dr. Oro consulted and planning to take pt to OR today. 04/15/17 18:27 Pt went to OR today, doing well afterwards. Cont. to monitor and follow along with surgery. Pt has slight bump in Cr, will do basic work up and follow for now. 04/17/17 11:35 Pt doing well and has no complaints. Awaiting margins from pathology to determine abx length of tx. ID following. 04/20/17 09:59 Pt continues to do well. Awaiting margins from pathology to determine abx length and route of tx. Lab informed that likely results will be back tomorrow.
[2017-04-20] MEDS: INSULIN NPH/REG 70/30 INJECTION SQ SCH ×2 (10:04→17:43)
[2017-04-20] MEDS: METFORMIN 1,000 MG TABLET PO SCH ×2 (10:04→16:53)
[2017-04-20] MEDS: ASCORBIC ACID 500 MG TABLET PO SCH ×2 (10:04→21:27)
[2017-04-20] MEDS: ASPIRIN 81 MG CHEWABLE TABLET PO SCH ×2 (10:04→21:27)
[2017-04-20] MEDS: NOZIN NASAL SWAB NAS SCH ×3 (10:04→16:53)
[2017-04-20] MEDS: MULTI-VITAMIN + MINERAL TABLET PO SCH (10:05)
[2017-04-20] MEDS: ENOXAPARIN 40 MG/0.4 ML INJECTION SQ SCH (10:05)
[2017-04-20] MEDS: CITALOPRAM 20 MG TABLET PO SCH (10:05)
--- NOTE | 2017-04-20 10:10 | Orthopedic Progress Note ---
Date: Subjective/Severity of Illness: Goran is alert, watching the [employer] parade. He has no pain. No complaints. Cultures are growing Corynebacterium. Still no path report yet. Orthopedic Objective PO Vital signs: Temperature 96.5 F L 04/20/17 09:02 Pulse Rate 72 04/20/17 09:02 Respiratory Rate 18 04/20/17 09:02 Blood Pressure 132/79 04/20/17 09:02 Pulse Oximetry 93 04/20/17 09:02 Height and Weight: Height 5 ft 8 in Weight 325 lb 2.909 oz Body Mass Index 47.0 - Constitutional General Appearance: Present: alert, orientated x3, no acute distress, obese - Respiratory Exam Present: non-labored - Cardiovascular Exam Present: peripheral edema, pedal pulses intact - Abdominal Exam Present: soft. Absent: tenderness, distended - Extremities Exam Extremities: Present: pulses intact (1 plus.), amputation (great toe, left ). Absent: calf tenderness - Surgical Site Incision: clean, dry, intact, sutures present, dressing intact (dressing was changed), no drainage - Integumentary Exam Present: pink, warm, dry - Lymphatic Lymphatic: Absent: lymphedema - Neurological Exam Present: intact to light touch (but decreased secondary to peripheral neruopathy ) - Psychiatric Exam Present: alert - Wound Management Foot Wound Type: Amputation (left great toe) Right Upper Posterior Thigh Wound Type: Moisture Associated Dermatitis Wound Length: 6 Wound Width: 7 Wound Depth: 0.1 Bed Appearance: Beefy Red (Dendued) Surrounding Tissue Appearance: Bright Red Drainage Description: Sanguineous Drainage Amount: Scant Drainage Odor: Slight Odor Dressing Status: Changed (Advanced skin protectant applied) Dressing Change Date: 04/17/17 Dressing Change Time: 10:00 Dressing Change Patient Tolerance: Tolerated Well Right Heel Wound Type: Pressure Injury (Callous at the heel and achillies) Wound Staging: Stage I Bed Appearance: Pale Surrounding Tissue Appearance: Well Defined Drainage Description: Serous Drainage Amount: None Drainage Odor: No Odor Dressing Status: Changed Dressing Change Date: 04/17/17 Dressing Change Time: 10:00 - Labs Result Diagrams: 04/18/17 07:18 04/20/17 04:08 H & H 04/14/17 04/15/17 04/16/17 Range/Units 16:48 03:55 04:27 Hgb 10.4 L 9.1 L D 8.1 L (13.5-17.5) GM/DL Hct 31.6 L 28.1 L D 25.2 L (41-53) % 04/17/17 04/18/17 Range/Units 03:54 07:18 Hgb 8.0 L 8.4 L (13.5-17.5) GM/DL Hct 24.6 L 26.4 L (41-53) % Orthopedic Assessment and Plan (1) Open fracture of phalanx of left great toe Status: Acute Qualifiers: Encounter type: initial encounter Phalanx: proximal Fracture alignment: displaced Qualified Code(s): S92.412B - Displaced fracture of proximal phalanx of left great toe, initial encounter for open fracture Assessment and Plan: s/p left great toe amputation Doing well from a pain aspect. Specimen shows Corynebacterium. path pending. Dressing was changed and wound looks good. Discharge planning per CM. Will likely go back to [place] but nothing has been arranged yet. Dr Lopez indicates to continue Ancef and await path report for decision on IV vs PO antibiotic. May mobilize to chair if he wishes, but will need full lift and NWB/no transfer on left. Hospital Course Summary Disclaimer: The visit summary below is not to be considered part of the above Progress Note. Hospital Course: 04/14/17 17:26 Will switch to basal-bolus insulin instead of continuing 70/30 tid. Calculations made based on 70 u w/ mills and 66 w/ br and reduced for now. Supplemental insulin available. Restarting bystolic. Monitor. May be able to restart ASA post-op. Holding lisinopril, kcl, metformin. Lab ordered. Dr. Oro consulted and planning to take pt to OR today. 04/15/17 18:27 Pt went to OR today, doing well afterwards. Cont. to monitor and follow along with surgery. Pt has slight bump in Cr, will do basic work up and follow for now. 04/17/17 11:35 Pt doing well and has no complaints. Awaiting margins from pathology to determine abx length of tx. ID following. 04/20/17 09:59 Pt continues to do well. Awaiting margins from pathology to determine abx length and route of tx. Lab informed that likely results will be back tomorrow.
[2017-04-20] MEDS: CEFAZOLIN 2 G in NS 100 ML IV SCH ×3 (10:47→16:55)
[2017-04-20] MEDS: LOVASTATIN 40 MG TABLET PO SCH (21:28)
[2017-04-21] MEDS: NOZIN NASAL SWAB NAS SCH ×3 (00:07→17:26)
[2017-04-21] MEDS: CEFAZOLIN 2 G in NS 100 ML IV SCH ×3 (00:20→17:26)
[2017-04-21] MEDS: ACETAMINOPHEN 325 MG TABLET PO PRN ×3 (05:37→23:47)
[2017-04-21] MEDS: CITALOPRAM 20 MG TABLET PO SCH (08:59)
[2017-04-21] MEDS: ASPIRIN 81 MG CHEWABLE TABLET PO SCH ×2 (08:59→20:17)
[2017-04-21] MEDS: MULTI-VITAMIN + MINERAL TABLET PO SCH (08:59)
[2017-04-21] MEDS: ASCORBIC ACID 500 MG TABLET PO SCH ×2 (08:59→20:17)
[2017-04-21] MEDS: METFORMIN 1,000 MG TABLET PO SCH ×2 (09:00→17:33)
[2017-04-21] MEDS: ENOXAPARIN 40 MG/0.4 ML INJECTION SQ SCH (09:00)
[2017-04-21] MEDS: INSULIN NPH/REG 70/30 INJECTION SQ SCH ×2 (09:00→17:33)
--- NOTE | 2017-04-21 11:33 | Progress Note ---
- Date 04/21/17 Subjective: Pt is doing well, denies any acute complaints. Denies any n/v/d, f/c, cp or sob. Objective Vital signs: Temperature 97.0 F 04/21/17 07:55 Pulse Rate 69 04/21/17 07:55 Respiratory Rate 18 04/21/17 07:55 Blood Pressure 124/75 04/21/17 07:55 Pulse Oximetry 95 04/21/17 07:55 Height/Weight/BMI: Height 5 ft 8 in Weight 148.8 kg Body Mass Index 47.0 - Constitutional Present: no acute distress - Routine HEENT Exam Head: Present: normocephalic, atraumatic ENT: Present: mucous membranes moist - Routine Respiratory Exam Present: CTA bilaterally. Absent: dyspnea - Routine Cardiovascular Exam Present: RRR, no murmur - Routine Abdominal Exam Present: soft, non distended, non tender - Routine Extremities Exam Present: no edema. Absent: cyanosis, clubbing - Routine Skin Exam Present: intact, dry. Absent: erythema - Routine Neurological Exam Present: alert, oriented X3 Results - Labs CBC & Chem 7: 04/18/17 07:18 04/20/17 04:08 Microbiology Results: Microbiology 04/15/17 08:13 Toe Great, Left, Bone Gram Stain - Final 04/15/17 08:13 Toe Great, Left, Bone Surgical Culture - Final Corynebacterium species Assessment and Plan Assessment and Plan: Left great toe open fracture with osteo -s/p surgery, ortho following -Surgical cx shows corynebacterium-->this is likely contaminant -ID recommended to keep pt on IV abx until path results come back - with ID is following DM -back on home 70/30 regimen 0f 66U in AM and 33U in PM -A1c is 6.5 so 70/30 regimen seems to be working well -Will restart metformin since Cr has improved HLD -Cont. lovastatin, ASA Normoctyic Anemia -Hgb 10.4-->9.1-->8.1-->8-->8.4 -Likely dilution plus s/p surgery -No active bleeding suspected -iron panel on low side of normal, may benefit from iron supplement, cont. monitor HTN -Cont. bystolic -Hold lisinopril/hctz, lasix/potassium-->Was initially holding d/t Cr -BPs actually doing well for multiple days now so will hold meds unless BPs start increasing LOLA -Resolved -Likely pre-renal, UA unremarkable -Cr 1.4-->1.9-->1.5-->1.1 Chronic LE wounds -Wound consult CP -PT/OT, not able to ambulate well DVT ppx -Lovenox Hospital Course Summary Disclaimer: The visit summary below is not to be considered part of the above Progress Note. Hospital Course: 04/14/17 17:26 Will switch to basal-bolus insulin instead of continuing 70/30 tid. Calculations made based on 70 u w/ mills and 66 w/ br and reduced for now. Supplemental insulin available. Restarting bystolic. Monitor. May be able to restart ASA post-op. Holding lisinopril, kcl, metformin. Lab ordered. Dr. Oro consulted and planning to take pt to OR today. 04/15/17 18:27 Pt went to OR today, doing well afterwards. Cont. to monitor and follow along with surgery. Pt has slight bump in Cr, will do basic work up and follow for now. 04/17/17 11:35 Pt doing well and has no complaints. Awaiting margins from pathology to determine abx length of tx. ID following. 04/20/17 09:59 Pt continues to do well. Awaiting margins from pathology to determine abx length and route of tx. Lab informed that likely results will be back tomorrow. 04/21/17 11:32 Pt stable. Awaiting margins from pathology to determine abx length and route of tx.
[2017-04-21] MEDS: LOVASTATIN 40 MG TABLET PO SCH (20:18)
[2017-04-22] MEDS: NOZIN NASAL SWAB NAS SCH ×2 (00:06→09:50)
[2017-04-22] MEDS: CEFAZOLIN 2 G in NS 100 ML IV SCH ×2 (00:07→09:53)
[2017-04-22] MEDS: HYDROCODONE/APAP 7.5 MG/325 MG TABLET PO PRN (01:37)
[2017-04-22 08:22] VITALS: RESP 20; O2SAT 94
[2017-04-22] MEDS: ASPIRIN 81 MG CHEWABLE TABLET PO SCH (09:50)
[2017-04-22] MEDS: CITALOPRAM 20 MG TABLET PO SCH (09:51)
[2017-04-22] MEDS: MULTI-VITAMIN + MINERAL TABLET PO SCH (09:51)
[2017-04-22] MEDS: METFORMIN 1,000 MG TABLET PO SCH (09:52)
[2017-04-22] MEDS: ENOXAPARIN 40 MG/0.4 ML INJECTION SQ SCH (09:52)
[2017-04-22] MEDS: ASCORBIC ACID 500 MG TABLET PO SCH (09:52)
[2017-04-22] MEDS: INSULIN NPH/REG 70/30 INJECTION SQ SCH (10:22)
[2017-04-22 12:17] VITALS: BP 124/73; PULSE 75; TEMP 96.2
--- NOTE | 2017-04-22 12:32 | Extended Care Facility Orders ---
Admission Orders Allergies/Adverse Reactions: Allergies Penicillins Allergy (Severe, Verified 04/14/17 16:11) Rash Cephalosporins Allergy (Verified 04/15/17 16:24) ciprofloxacin [From Cipro] Allergy (Verified 04/15/17 16:24) clindamycin Allergy (Verified 04/15/17 16:24) levofloxacin [From Levaquin] Allergy (Verified 04/15/17 16:24) vancomycin Allergy (Verified 04/15/17 16:24) Admitting Diagnosis: toe injury w partial amputation Admitting Physician: Ciarra Archer MD Attending Physician: Maribel Gregorio MD Code Status: Full code Anticiapted Length of Stay: 30 days or less Rehab Potential: fair Rehab Prognosis: fair Diet: diabetic Wound/Incision Care: wounds on right leg and coccyx--Mepilex dressing, change every 3 days or as needed. Left great toe--Xeroform telfa covered with araceli wrap , change every 2-3 days or as needed. May use Facility Protocol or Standing Orders: Yes May have flu vaccine: Yes Evaluations/Treatment: PT (NWB LLE, may not pivot on LLE) Penitentiary Certification: I certify that SNF services are required to be given on an Inpatient basis because of the patients need for halfway care on a continuing basis for the condition(s) for which he/she received inpatient hospital services prior to his/her transfer to the SNF. SNF inpatient care is necessary for the following reasons Indication for Penitentiary: Wound Care/Assessment, Diabetic Assessment, Teach Medication Management - Additional Information In Event of Arrest: Start CPR,call 911,send patient to the ER Resident is Aware of Diagnosis: Yes Additional Orders: BMP on 04/24-DM, HTN, monitor medications. accuchecks fasting and 2 hrs after meals; there was uncertainty about "home" insulin regimen-discharged on what we believe is home dose, if not true please resume usual home regimen. Continue aspirin bid for 1 month then decrease to daily ( DVT prevention). Cephalexin qid for 1 more week-discontinue after doses on 04/28. Pt will need f/u appt with Dr. Oro to reassess left foot/surgical site in 1-2 weeks; please call [phone] to schedule. Please note that pt is note allergic to cephalosporins and was treated with IV cephalosporin without incident during the hospitalization.
--- NOTE | 2017-04-22 13:17 | Discharge Summary ---
Discharge Information Date of admission: 04/15/17 11:01 Anticipated date of discharge: 04/22/17 Attending Physician: Maribel Gregorio MD Primary care physician: Mich Pardo MD Consults: Dr. Corey Oro-Orthopedic Surgery Dr. Rosetta Lopez-infectious disease - Discharge Diagnosis (1) Open fracture of phalanx of left great toe Status: Acute (2) Cellulitis of great toe, left Status: Acute - Procedures Procedures: Irrigation of left open great toe proximal phalanx fracture on 04/14/17. Left great toe metatarsophalangeal joint disarticulation/amputation and I&D left open great toe fracture on 04/15/17 - Laboratory Labs: Admission labs on 04/14/17 included white count 12.1, hemoglobin 10.4, creatinine 1.4, BUN 37, and normal electrolytes. Additional studies obtained during the hospitalization included normal liver enzymes on 04/15, A1c 6.3 on 04/15, serum iron 53, TIBC 274, saturation 90% on 04/17/17, and high-sensitivity CRP 12.73 on 04/17/17 04/18/17 07:18 04/20/17 04:08 - Microbiology Microbiology 04/15/17 08:13 Toe Great, Left, Bone Gram Stain - Final 04/15/17 08:13 Toe Great, Left, Bone Surgical Culture - Final Corynebacterium species-light growth - Radiology Radiology: 3 views of the left foot on 04/14/17: Findings: There is a pathologic fracture through the great toe proximal phalanx through a large lytic lesion. This fracture appears to extend into the metatarsophalangeal joint. There is possible osteolysis also in the second metatarsal head. Lateral deviation of the toes with bony fusion and ankylosis of the PIP and DIP joints diffusely. Moderate degenerative change in the first metatarsophalangeal joint with severe hallux valgus deformity. Orthopedic hardware in the distal tibia and fibula. Large inferior calcaneal spur. Hammertoe deformities. Impression: Pathologic fracture through the great toe proximal phalanx. Lytic process in this phalanx could be due to osteomyelitis. Possible osteomyelitis involvement also in the second metatarsal head. - Pathology Surgical pathology of the left toe was reported out on 04/21 with report indicating there was acute cellulitis involving the left great toe and bone changes consistent with fracture and hemorrhage however no definite acute osteomyelitis. History of Present Illness HPI: Goran Stuart is a 56 yo with DM2, cerebral palsy, epilepsy, GERD, HTN. He is a care home resident who had a fall today. Patient struggles to give a history. First he said he tripped, then he said he fell out of bed. He has a left great toe fracture with laceration and exposed bone. He denies pain. He denies any other injury associated with fall. He denies n/v. He is admitted to [facility] for ortho eval by Dr. Oro. Hospital Course This is a general summary of the patient's hospital course. For more details refer to the complete medical record. Hospital course: Diagnoses: Left great toe open fracture with cellulitis Diabetes mellitus, type II Acute kidney injury Chronic wounds lower extremity Normocytic anemia Hyperlipidemia Hypertension Cerebral palsy History epilepsy Hospital course: Patient was hospitalized with a left great toe open fracture. Dr. Oro's consulted the patient went to the operating room on the date of admission for irrigation of the fracture site. He returned to the operating room the following day for disarticulation at the MTP joint with amputation of the distal aspect of the left great toe. Surgery recommended the patient be nonweightbearing on his left lower extremity. Although the patient had a reported history of allergy to cephalosporins he had received cephalexin without incident prior to transfer and was started on cefazolin on admission. This was continued through the date of discharge due to the concern of possible osteomyelitis raised by initial x-rays. Pathology did not identify osteomyelitis and he was converted from IV to oral antibiotics at discharge based on infectious disease recommendation that he be treated with oral antibiotics in the absence of osteomyelitis. 2 week duration antibiotics was recommended by Dr. Lopez in the absence of osteomyelitis and he will continue cephalexin for one additional week as he's completed 1 week of antibiotics while hospitalized. The patient will require surgical follow-up in 1-2 weeks for reassessment of the surgical site. The patient was initially converted from 70/30 insulin to basal-bolus insulin regimen perioperatively and subsequently returned to twice daily 70/30 insulin regimen with doses consistent with what was believed to be on at home although there was some uncertainty about home regimen. A1c indicated good control of diabetes prior to admission. On the second hospital day the patient's creatinine bumped from 1.4 to 1.9. Lisinopril/HCTZ and Lasix/potassium were held. Bystolic was initiated as an alternate antihypertensive pending stabilization of renal function. Prior to discharge home regimen was resumed for blood pressure control after renal function had returned to normal. Acute kidney injury was felt to be due to prerenal state and subsided quickly with IV fluids. Hemoglobin dropped modestly from an admission value of 10.4 to 8.1 prior to discharge. This was attributed to chronic disease and hemodilution in conjunction with minor surgical blood loss. No interventions were made regarding anemia. The patient was seen by the wound care nurse regarding chronic wounds on his coccyx and right lower extremity during the hospitalization. Mepilex dressings are being utilized. Pathology report returned late in the day on 04/21 indicating changes of cellulitis but no definitive evidence of osteomyelitis. Subsequently was felt patient could be converted from IV to oral antibiotics and would require one additional week antibiotics based on prior recommendations of Dr. Lopez. Discharge arrangements were coordinated with [facility] and [facility] (where the patient resides) to return on 04/22. On the date of discharge the patient had no complaints and indicated he was having no pain, difficulty breathing, or nausea. His only concern was that he was lonely in the hospital and he was pleased to learn a return home. Examination revealed patient to be alert and in no distress. Respirations were nonlabored with clear breath sounds although airflow is somewhat diminished bilaterally. Abdomen is soft and nontender. Dressings are in place in the lower extremities and the left foot was Iker wrapped. Patient is to follow-up with Dr. Oro in 1-2 weeks and will otherwise return to the care of Dr. Pardo. I have asked they reassess a basic metabolic panel early next week to monitor renal function. Additionally Accu-Cheks will be monitored on a regular basis as he transitions back to home diet. Time spent with patient: discharge greater than 30 minutes Discharge Plan - Med Rec/Dispo [place] Instructions: Toe Amputation (DC) Prescriptions: New Aspirin Chewable [ASA] 81 mg PO BID tab.chew Clotrimazole 1% Cream [LOTRIMIN Cream] 1 applicatio TOP TID tube Hydrocodone/APAP 7.5/325 [[place] 7.5/325] 1 - 2 tab PO Q6H PRN #30 tab PRN Reason: Pain Insulin NPH/Reg 70/30 [Novolin 70/30] 33 unit SQ 1700 bottle Insulin NPH/Reg 70/30 [Novolin 70/30] 66 unit SQ AMI bottle CephALEXin [Keflex] 500 mg PO QID 7 Days cap Senna + Docusate [Senna Plus Tablet] 1 tab PO BID PRN tab PRN Reason: Constipation Continue Lisinopril/Hctz 20/25 [Prinzide 20/25] 1 tab PO DAILY Furosemide [Lasix] 40 mg PO DAILY Citalopram [Celexa] 1 tab PO DAILY Lovastatin [Mevacor] 40 mg PO HS Multivitamin [One Daily] 1 each PO DAILY Potassium Chloride [Klor-Con 10] 10 meq PO BIDWM PEG 3350 17gm PACKET [Miralax] 17 gm PO DAILY PRN PRN Reason: Constipation Milk of Magnesia [Mom] 30 ml PO PRN PRN PRN Reason: Constipation Acetaminophen [Tylenol] 500 - 1,000 mg PO Q8H Nebivolol [Bystolic] 5 mg PO DAILY Metformin [Glucophage] 1 tab PO BIDWM Ascorbate Calcium [Vitamin C] 500 mg PO BID Discontinued Aspirin [Aspirin EC] 81 mg PO DAILY Docusate Sodium 100 mg PO Q12H PRN PRN Reason: Constipation - Disposition 03 To [facility] ([facility])
== END 2017-04-22 13:50 | DRG 504 ==
LOC: SRG → SUATTDRO 15:49
PROVIDERS: ADMIT Hospitalist; ATTEND Internal Medicine